=== PATIENT | male | born 1965 | race Caucasian/White ===

== ENCOUNTER 2017-11-25 11:32 | Emergency (ER) | payer MEDICAID, SELFPAY ==
[2017-11-25 12:52] VITALS: BP 120/64; PULSE 69; RESP 20; TEMP 36.6; O2SAT 98
--- NOTE | 2017-11-25 13:03 | HMH.EDUTC ---
[facility] [place] Clinical Impression: Fever of unknown origin, Strep throat Disposition: Home, Self-Care Condition on Discharge: Good Instructions: Fever of Unknown Origin, DI for Fever (Symptom) -- Adult Additional Instructions: *change toothbrush and toothpaste 24-48 hours after starting to take antibiotics so you do not reinfect yourself Monitor Temp. Tylenol and/or Ibuprofen as needed. ER if fever is no less than 101 despite alternating Tylenol and Ibuprofen * Encourage fluids, water, Gatorade, powerade, pedialyte if /toddler/or child *Cold fluids, popsicles and ice cream may feel good on his throat *Over the counter Motrin or Tylenol as needed for fever or pain Follow up with family doctor if symptoms persist or worsen Referrals: Hoarcio Castillo MD [Primary Care Provider] - Time of Disposition: 13:23 Medical Decision Making Vital Signs: 11/25/17 12:52 Temperature 98 F Temperature Source Oral Pulse Rate [Right Brachial] 69 Respiratory Rate 20 Blood Pressure [Right Arm] 120/64 Blood Pressure Source [Right Arm] Automatic Cuff 02 Sat by Pulse Oximetry 98 Oxygen Delivery Method Room Air - [place] Inquiry Pt receiving controlled substance: No [place] was queried for this patient: No [facility] [place] - General Chief complaint: Fever Stated complaint: fever Time Seen by Provider: 11/25/17 13:10 Mode of Arrival: Ambulatory Source of Information: Patient Limitations: No Limitations Description of Symptoms (Recalled from Triage Doc. by RN): cough, sore throat, ear pain, chills HEENT Symptoms (Recalled from RN notes): Yes (cough, sore throat, ear pain) Resp Symptoms (Recalled from RN notes): No Skin Symptoms (Recalled from RN notes): No MS Symptoms (Recalled from RN notes): No Functional Status (Recalled from RN notes): na - History of Present Illness Provider Complaint: Patient state that he has not been feeling well for several days that has continued to get worse. State that his throat is sore, ears feel full and having cough state that he thinks he has a fever Onset (ago): day(s) (2-3) Radiation: non-radiation Severity scale (1-10): 4 Consistency: constant Relieving factors: none Exacerbating factors: none Associated symptoms: cough, fever/chills, other (sore throat) - Related Data Allergies Allergy/AdvReac Type Severity Reaction Status Date / Time No Known Allergies Allergy Verified 11/25/17 12:57 - Worker's Comp Is this a Worker's Comp case?: No Is this an [facility] Worker's Comp?: No Is this a [facility] Worker's Comp?: No [facility] History - *Social History Alcohol Intake: never - Psychiatric History Expresses thoughts of harming self/others: None Suicide Plan Description: No Plan ROS Obtained: Yes All systems reviewed & no additional complaints except as noted - Constitutional Reports chills, Reports fever(s) - ENT Reports ear pain, Reports sinus pain, Reports other Comments: sore throat - Respiratory Reports cough - Gastrointestinal Reports nausea Physical Exam - General General appearance: alert, in no apparent distress - Head Head exam: normal inspection - Expanded ENT Exam Throat exam: Present: tonsillar exudate - Chest Chest inspection: Present: normal inspection. Absent: tenderness - Respiratory Respiratory exam: Present: normal lung sounds bilaterally. Absent: wheezes - Cardiovascular Cardiovascular exam: Present: regular rate - Abdominal Exam Abdominal exam: Present: soft, normal bowel sounds. Absent: distention, tenderness, guarding - Neurological Exam Neurological exam: Present: alert, oriented X3 - Psychiatric Psychiatric exam: Present: normal affect, normal mood - Skin Skin exam: Present: warm, dry, intact, normal color
--- NOTE | 2017-11-25 13:09 | ED_ITS ---
[facility] – [place] Clinical Impression: Fever of unknown origin, Strep throat Disposition: Home, Self-Care Condition on Discharge: Good Instructions: Fever of Unknown Origin, DI for Fever (Symptom) -- Adult Additional Instructions: *change toothbrush and toothpaste 24-48 hours after starting to take antibiotics so you do not reinfect yourself Monitor Temp. Tylenol and/or Ibuprofen as needed. ER if fever is no less than 101 despite alternating Tylenol and Ibuprofen * Encourage fluids, water, Gatorade, powerade, pedialyte if /toddler/or child *Cold fluids, popsicles and ice cream may feel good on his throat *Over the counter Motrin or Tylenol as needed for fever or pain Follow up with family doctor if symptoms persist or worsen Referrals: Horacio Castillo MD [Primary Care Provider] - Time of Disposition: 13:23 Medical Decision Making Vital Signs: 11/25/17 12:52 Temperature 98 F Temperature Source Oral Pulse Rate [Right Brachial] 69 Respiratory Rate 20 Blood Pressure [Right Arm] 120/64 Blood Pressure Source [Right Arm] Automatic Cuff 02 Sat by Pulse Oximetry 98 Oxygen Delivery Method Room Air - [place] Inquiry Pt receiving controlled substance: No [place] was queried for this patient: No [facility] [place] HPI - General Chief complaint: Fever Stated complaint: fever Time Seen by Provider: 11/25/17 13:10 Mode of Arrival: Ambulatory Source of Information: Patient Limitations: No Limitations Description of Symptoms (Recalled from Triage Doc. by RN): cough, sore throat, ear pain, chills HEENT Symptoms (Recalled from RN notes): Yes (cough, sore throat, ear pain) Resp Symptoms (Recalled from RN notes): No Skin Symptoms (Recalled from RN notes): No MS Symptoms (Recalled from RN notes): No Functional Status (Recalled from RN notes): na - History of Present Illness Provider Complaint: Patient state that he has not been feeling well for several days that has continued to get worse. State that his throat is sore, ears feel full and having cough state that he thinks he has a fever Onset (ago): day(s) (2-3) Radiation: non-radiation Severity scale (1-10): 4 Consistency: constant Relieving factors: none Exacerbating factors: none Associated symptoms: cough, fever/chills, other (sore throat) - Related Data Allergies Allergy/AdvReac Type Severity Reaction Status Date / Time No Known Allergies Allergy Verified 11/25/17 12:57 - Worker's Comp Is this a Worker's Comp case?: No Is this an [facility] Worker's Comp?: No Is this a [facility] Worker's Comp?: No [facility] History - *Social History Alcohol Intake: never - Psychiatric History Expresses thoughts of harming self/others: None Suicide Plan Description: No Plan ROS Obtained: Yes All systems reviewed & no additional complaints except as noted - Constitutional Reports chills, Reports fever(s) - ENT Reports ear pain, Reports sinus pain, Reports other Comments: sore throat - Respiratory Reports cough - Gastrointestinal Reports nausea Physical Exam - General General appearance: alert, in no apparent distress - Head Head exam: normal inspection - Expanded ENT Exam Throat exam: Present: tonsillar exudate - Chest Chest inspection: Present: normal inspection. Absent: tenderness - Respiratory Respiratory exam: Present: normal lung sounds bilaterally. Abse
[2017-11-25 16:20] LABS: UTC Influenza A Antigen Negative (Negative); UTC Influenza B Antigen Negative (Negative); UTC Strep Screen (Rapid) Positive (Negative)
== END 2017-11-25 13:38 | disposition home or self-care (01) ==
PROVIDERS: Emergency Provider Nurse Practitioner; PCP Internal Medicine Adolescent Medicine
DX: J02.0 Streptococcal pharyngitis (principal)
CPT/HCPCS: 87276; 87430; 96372; 99201; 99281; J0561

== ENCOUNTER 2017-12-30 07:05 | Day surgery (SDC) | payer MEDICAID, SELFPAY ==
[2017-12-30] VITALS (8 sets, daily range): BP systolic 95–113; BP diastolic 52–70; PULSE 58–67; RESP 16–20; TEMP 37; O2SAT 92–96; BMI 38.0
--- NOTE | 2017-12-30 07:54 | HMH.SCOPE ---
- Procedure: Date: 12/30/17 Procedure Performed:: Esophagogastroduodenoscopy with biopsies Indications:: Patient is a 52-year-old white male referred for upper endoscopy. Had performed colonoscopy for screening on him 6 months ago and recommended a 5 year follow-up. Patient has had several upper endoscopies in the past by gastroenterology. He has had some findings of nonerosive gastritis. Patient describes symptoms consistent with heartburn. He has symptoms of dyspepsia. He states his symptoms are worse with spicy type foods. He is on 20 mg pantoprazole. Performing Provider:: Rc Patton MD Referring Provider:: Horacio Castillo MD Sedation:: Versed 4 mg, fentanyl 100 mcg Procedure:: Consent was obtained and patient was taken to same-day surgery endoscopy procedure room. Adequate intravenous sedation was achieved with titration of Versed and fentanyl. Olympus endoscope was inserted via the oropharynx and advanced to the esophagus. Esophagus appeared normal. Stomach was cannulated and insufflated. Retroflexion revealed no evidence of any appreciable hiatal hernia. There were a couple of erosions in the antrum versus very small early superficial ulcerations. Gastric antral mucosal biopsies obtained for CLOtest for H. pylori. Gastric antral biopsy was obtained of 1 of the erosions. Pylorus was traversed. There was mild erythema of the duodenum but relatively unremarkable. Biopsies were obtained within the duodenum. Endoscope was withdrawn and a couple biopsies were obtained at the gastroesophageal junction. Stomach was desufflated and the endoscope was withdrawn. Findings:: Evidence of some erosive gastritis in the antrum Recommendations:: Patient may require higher dose proton pump inhibitor. Treat H. pylori if positive. If his symptoms remain refractory may initiate gallbladder workup. Complications:: None Estimated blood obtained (mL): 2
== END 2017-12-30 08:30 | disposition home or self-care (01) ==
LOC: OUTP 07:06
PROVIDERS: PCP Internal Medicine Adolescent Medicine; Visit Provider Surgery
PROC: 0DJ08ZZ Inspection of Upper Intestinal Tract, Via Natural or Artificial Opening Endoscopic (ICD-10-PCS; CPT 43235; principal; 2017-12-30 07:30)
DX: K29.70 Gastritis, unspecified, without bleeding (principal); R10.13 Epigastric pain
CPT/HCPCS: 43239; 87339; 99152

== ENCOUNTER → 2018-01-20 09:27 | Outpatient (CLI) | payer MEDICAID, SELFPAY ==
--- NOTE | 2018-01-20 09:34 | XR_ITS ---
XR ankle LT min 3V HISTORY: Anterior ankle pain ITS.REASON: PAIN ANTERIOR ROSARIO, R/O ROSARIO SPLINTS ORDERING PHYSICIAN: Sheryl Garcia DPM PATIENT AGE: 52 years COMPARISON: 06/10/2017 FINDINGS: Prior ORIF of the distal tibia and distal fibula with a bone plate at the distal tibia and a longitudinal screw through the distal fibula. Hypertrophic changes are present at the tip of the medial malleolus. No acute fracture or dislocation is evident with no significant change. There is some mild cortical thickening of the distal tibia. This however is similar when compared to the previous exam and could be related to old trauma. There is faint calcification in the soft tissues of the anterior distal leg probably related to phleboliths. A metallic rounded foreign body is noted over the medial calf posteriorly consistent with a BB. There is a small calcaneal spur and there are mild osteoarthritic changes of the ankle joints presumed post traumatic. IMPRESSION: 1. Prior ORIF distal tib-fib as described above 2. Small metallic foreign body of the posterior calf medially consistent with a BB. 3. No acute finding
== END ==
PROVIDERS: PCP Internal Medicine Adolescent Medicine; Visit Provider Podiatrist
DX: M25.572 Pain in left ankle and joints of left foot (principal); S86.892A Other injury of other muscle(s) and tendon(s) at lower leg level, left leg, initial encounter
CPT/HCPCS: 73610

== ENCOUNTER 2018-01-28 12:09 | Emergency (ER) | payer MEDICAID, SELFPAY ==
[2018-01-28 12:27] VITALS: BP 108/73; PULSE 69; RESP 20; TEMP 36.8; O2SAT 94; BMI 39.3
--- NOTE | 2018-01-28 12:58 | HMH.EDUTC ---
[facility] [place]errals: Horacio Castillo MD [Primary Care Provider] - Medical Decision Making Vital Signs: 01/28/18 12:27 Temperature 98.2 F Temperature Source Temporal Artery Scan Pulse Rate [Right Brachial] 69 Respiratory Rate 20 Blood Pressure [Right Arm] 108/73 Blood Pressure Mean [Right Arm] 84 Blood Pressure Source [Right Arm] Automatic Cuff Blood Pressure Position [Right Arm] Sitting 02 Sat by Pulse Oximetry 94 L Oxygen Delivery Method Room Air [facility] [place] - General Stated complaint: back pain, unknown origin Time Seen by Provider: 01/28/18 12:58 Mode of Arrival: Family Vehicle Source of Information: Patient Limitations: No Limitations Description of Symptoms (Recalled from Triage Doc. by RN): c/o left lower back pain x 1 week HEENT Symptoms (Recalled from RN notes): No Resp Symptoms (Recalled from RN notes): No Skin Symptoms (Recalled from RN notes): No MS Symptoms (Recalled from RN notes): Yes (low back pain) Functional Status (Recalled from RN notes): n/a - Related Data Home Medications Medication Instructions Recorded Confirmed aspirin 81 mg tablet,delayed 81 mg PO QDAY 12/22/17 01/28/18 release carvedilol 12.5 mg tablet 12.5 mg PO BID 12/22/17 01/28/18 pantoprazole 20 mg tablet,delayed 20 mg PO QDAY 12/22/17 01/28/18 release ramipril 1.25 mg capsule 1.25 mg PO QDAY 12/22/17 01/28/18 Atorvastatin Calcium [Atorvastatin 40 mg PO DAILY 01/28/18 01/28/18 40mg Tab] Tamsulosin HCl [Flomax 0.4mg 0.4 mg PO DAILY 01/28/18 01/28/18 capsule] Allergies Allergy/AdvReac Type Severity Reaction Status Date / Time No Known Allergies Allergy Verified 01/16/18 10:27 - Worker's Comp Is this a Worker's Comp case?: No [facility] History Medical History: Reports:: Coronary Artery Disease, Hypertension Denies:: Diabetes Mellitus Type 1, Diabetes Mellitus Type 2, Internal Pacemaker, Lung Disease, Seizures Laterality Cases: Left: Other Other Surgeries: Yes: Colonoscopy, EGD, Other (ankle). No: Pacemaker Amputation: No - Social History Smoking Status: Current every day smoker Tobacco Type: cigarettes Alcohol Intake: never Alcohol Intake Frequency:: other Substance Use Type: denies use - Psychiatric History Expresses thoughts of harming self/others: None Suicide Plan Description: No Plan Family Hx:: Hypertension, Coronary Artery Disease
--- NOTE | 2018-01-28 13:01 | ED_ITS ---
[facility] – [place] Disposition Referrals: Horacio Castillo MD [Primary Care Provider] - Medical Decision Making Vital Signs: 01/28/18 12:27 Temperature 98.2 F Temperature Source Temporal Artery Scan Pulse Rate [Right Brachial] 69 Respiratory Rate 20 Blood Pressure [Right Arm] 108/73 Blood Pressure Mean [Right Arm] 84 Blood Pressure Source [Right Arm] Automatic Cuff Blood Pressure Position [Right Arm] Sitting 02 Sat by Pulse Oximetry 94 L Oxygen Delivery Method Room Air [facility] [place] HPI - General Stated complaint: back pain, unknown origin Time Seen by Provider: 01/28/18 12:58 Mode of Arrival: Family Vehicle Source of Information: Patient Limitations: No Limitations Description of Symptoms (Recalled from Triage Doc. by RN): c/o left lower back pain x 1 week HEENT Symptoms (Recalled from RN notes): No Resp Symptoms (Recalled from RN notes): No Skin Symptoms (Recalled from RN notes): No MS Symptoms (Recalled from RN notes): Yes (low back pain) Functional Status (Recalled from RN notes): n/a - Related Data Home Medications Medication Instructions Recorded Confirmed aspirin 81 mg tablet,delayed 81 mg PO QDAY 12/22/17 01/28/18 release carvedilol 12.5 mg tablet 12.5 mg PO BID 12/22/17 01/28/18 pantoprazole 20 mg tablet,delayed 20 mg PO QDAY 12/22/17 01/28/18 release ramipril 1.25 mg capsule 1.25 mg PO QDAY 12/22/17 01/28/18 Atorvastatin Calcium [Atorvastatin 40 mg PO DAILY 01/28/18 01/28/18 40mg Tab] Tamsulosin HCl [Flomax 0.4mg 0.4 mg PO DAILY 01/28/18 01/28/18 capsule] Allergies Allergy/AdvReac Type Severity Reaction Status Date / Time No Known Allergies Allergy Verified 01/16/18 10:27 - Worker's Comp Is this a Worker's Comp case?: No [facility] History Medical History: Reports:: Coronary Artery Disease, Hypertension Denies:: Diabetes Mellitus Type 1, Diabetes Mellitus Type 2, Internal Pacemaker, Lung Disease, Seizures Laterality Cases: Left: Other Other Surgeries: Yes: Colonoscopy, EGD, Other (ankle). No: Pacemaker Amputation: No - Social History Smoking Status: Current every day smoker Tobacco Type: cigarettes Alcohol Intake: never Alcohol Intake Frequency:: other Substance Use Type: denies use - Psychiatric History Expresses thoughts of harming self/others: None Suicide Plan Description: No Plan Family Hx:: Hypertension, Coronary Artery Disease
--- NOTE | 2018-01-28 13:17 | PC.NURSE ---
Spoke to both patient and . HPI: Low back pain x weeks. 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 No known injury. Gradually worsening over last 2-3 days. Advil had been helping. Could barely move this morning . a calf and had to pull it last night. Wonders if that aggravated pain. Denies pain radiating into extremities, no N/T, no incontinence, Just pain . The worse laying still. Discussed possible differentials with pt and likelihood of low back strain. Also discussed [facility] guidelines that say over 50 with back pain should be seen in ER. Pt's doesn't want to accept the risk associated w/ being seen in [facility] and request to transfer to ER to be sure it is nothing else . Aware ER MD might examine pt and also feel back strain related and do no further evaluation but is comfortable with this and still rather have ER evaluation. Pt just wants whatever is fastest because he has more calves to try and because there is no one else . Report called to Rufina in ER. Bed 9 available. Pt assisted over by Corry [facility] tech, and his .
[2018-01-28 13:21] VITALS: BP 116/73; PULSE 68; RESP 20; TEMP 36.8; O2SAT 94; BMI 39.3
--- NOTE | 2018-01-28 13:37 | XR_ITS ---
EXAM: XR lumbar spine 2-3V HISTORY: ITS.REASON: low back pain ORDERING PHYSICIAN: Rey Powers MD PATIENT AGE: 52 years COMPARISON: None FINDINGS: Normal alignment. No fracture or dislocation. No lytic or blastic change. Anterior osteophytes are present from L3 to S1. Mild facet hypertrophic changes are present at L5-S1. There is mild sclerosis of the left SI joint. Right SI joint has an unremarkable appearance. IMPRESSION: Mild lumbar spondylosis with osteophytosis and facet arthritic change. Mild sclerosis of left SI joint
--- NOTE | 2018-01-28 13:46 | HMH.EDGENADL ---
ED Disposition Clinical Impression: Low back pain Qualifiers: Chronicity: acute Back pain laterality: left Sciatica presence: without sciatica Qualified Code(s): M54.5 - Low back pain Disposition: Home, Self-Care Condition on Discharge: Good Instructions: DI for Low Back Pain Additional Instructions: Additional instructions for BACK PAIN: See your physician as soon as possible for further evaluation. Return immediately if back pain becomes intolerable, or if fever, numbness or weakness of your legs, loss of control of your bowels or bladder. Additional instructions for CONTROLLED SUBSTANCES: You have been prescribed a medication that is a controlled substance. Controlled substances include pain medications known as opiates and sedative nerve medications known as benzodiazepines. Some common opiates include: Codeine (such as Tylenol #3) Hydrocodone (Vicodin, Lortab, Lorcet, [place]) Oxycodone (Percocet, Percodan, Oxycodone, Oxy IR) Some common benzodiazepines include: Diazepam (Valium) Lorazepam (Ativan) Alprazolam (Xanax) Clonazepam (Klonopin) Oxazepam (Serax) All of these controlled substances are highly addictive and frequently abused. Misuse can and frequently does lead to addiction as well as overdose and . Medication should be stored in a locked cabinet or other secure storage unit. Do not store the medication in a motor vehicle. Short term supplies, 3 days or less, are prescribed because of the highly addictive nature of the medication. Any of the controlled substance medication NOT taken should be disposed of properly and NOT SAVED. The recommended method of disposing of unused medications is: Place the medicines in a sealable plastic bag. If the medicine is a solid, crush it or add water to dissolve it. Add something undesirable (cat litter, coffee grounds, etc.) Dispose of sealed bag in household trash Do not flush or pour unused medicines down a sink or drain. Controlled substances should not be shared, given away or sold. Because of the addictive nature and frequent abuse, these medications are sometimes stolen. These medications should be kept in a safe place where they cannot be stolen. Do not keep them in your car or purse. Lost or stolen prescriptions for controlled substances WILL NOT BE REFILLED in this emergency department, regardless of whether a police report was filed. Prescriptions: Acetaminophen with Codeine [Tylenol with Codeine #3 tablet] 1 - 2 tab PO Q6HP PRN #12 tab PRN Reason: Moderate Pain Acetaminophen with Codeine [Tylenol with Codeine #3 tablet] 1 - 2 tab PO Q6HP PRN #12 tab PRN Reason: Moderate Pain predniSONE [Prednisone 20mg Tab] 20 mg PO BID #10 tab Referrals: Horacio Castillo MD [Primary Care Provider] - 3 days - Critical Care Critical Care Time: No Attestation: On 01/28/18, the high probability of a clinically significant, sudden or life threatening deterioration of the following system(s) required my full and direct attention, intervention and personal management. The time I documented below is in addition to time spent performing reported procedures but includes the following listed in this critical care notation. Medical Decision Making Vital Signs: 01/28/18 12:27 01/28/18 13:21 Temperature 98.2 F 98.2 F Temperature Source Temporal Artery Scan Oral Pulse Rate [Right Brachial] 69 68 Respiratory Rate 20 20 Blood Pressure [Right Arm] 108/73 116/73 Blood Pressure Mean [Right Arm] 84 87 Blood Pressure Source [Right Arm] Automatic Cuff Automatic Cuff Blood Pressure Position [Right Arm] Sitting Sitting 02 Sat by Pulse Oximetry 94 L 94 L Oxygen Delivery Method Room Air Room Air - Lab Data Lab Results 01/28/18 13:30: Urine Color Yellow, Urine Appearance Clear, Urine pH 6.0, Ur Specific [place] 1.025, Urine Protein Negative, Urine Glucose (UA) Negative, Urine Ketones Negative, Urine Blood Negative, Urine Nitrate Negative, Urine Bilir
[2018-01-28 13:47] LABS: Microscopic, Urine URINE MICROSCOPIC (MICROSCOPIC)
[2018-01-28 13:55] LABS: Appearance,Urine CLEAR (Clear); Bilirubin,Urine Negative (Negative); Blood, Urine Negative (Negative); Color,Urine YELLOW (Yellow); Glucose,Urine (UA) Negative (Negative); Ketones,Urine Negative (Negative); Leukocyte Esterase,Urine Negative (Negative); Nitrate,Urine Negative (Negative); Protein,Urine Negative (Negative); Specific Gravity, Urine 1.025 (1.005-1.030); Urobilinogen,Urine 0.2 EU/dl (0.2)
[2018-01-28 14:08] LABS: Bacteria,Urine Trace /lpf; Squamous Epithelial Cell,Urine Occasional #/hpf (0-5); WBC,Urine Occasional #/hpf (0-3)
[2018-01-28 15:20] VITALS: BP 119/80; PULSE 69; RESP 20; TEMP 36.7; O2SAT 95
== END 2018-01-28 15:20 | disposition home or self-care (01) ==
LOC: UTC 12:12 → ER 13:17
PROVIDERS: Emergency Provider Emergency Medicine; PCP Internal Medicine Adolescent Medicine
DX: M54.5 Low back pain (principal); I10 Essential (primary) hypertension; I25.10 Atherosclerotic heart disease of native coronary artery without angina pectoris; F17.210 Nicotine dependence, cigarettes, uncomplicated; Z79.82 Long term (current) use of aspirin
CPT/HCPCS: 72100; 81001; 99283

== ENCOUNTER → 2018-05-13 06:55 | Outpatient (CLI) | payer MEDICAID, SELFPAY ==
--- NOTE | 2018-05-13 06:56 | CA_ITS ---
PROCEDURE: 2-D M-mode and color Doppler study INDICATIONS FOR THE TEST: Chest pain X COPD Heart Murmur Tobacco Smoking Palpitations Fatigue Syncope Edema HypertensionXDiabetes Mellitus Rheumatic Fever SOB DOEXObesity Hyperlipidemia Family History HD Additional History ASHWIN,BRADYCARDIA TDS OBESITY PATIENT INFORMATION HEIGHT: 72 WEIGHT:291 GENDER: Male B/P:120/68 2-D/M-MODE INTERPRETATION: 2-D MEASUREMENTS OBSERVED VALUES IN CMS Right Ventricular Dimension (RVDd) 3.1 Interventricular Septum (Thickness)(IVsd) 1.0 Left Ventricular Internal Dimensions(LVIDd) 5.2 Left Ventricular Posterior Wall (Thickness)(LVPWd) 1.2 Aortic Root 3.3 Aortic Cusp Separation 1.6 Left Atrial Dimensions (LAD) 3.6 2D 1. Left atrium is normal size, left ventricle is normal size, there is no concentric left ventricular hypertrophy, visually estimated ejection fraction 55% with no obvious regional wall motion abnormality. 2. The right atrium is normal size, right ventricle is mildly enlarged with normal contractility. 3. The aortic, mitral and tricuspid valvular grossly normal. 4. The pulmonic valve is poorly visualized. 5. No significant pericardial effusion noted. DOPPLER INTERROGATION: Doppler interrogation of the aortic, mitral and tricuspid valvular presence of mild mitral and tricuspid regurgitation, tricuspid and jet velocity is insufficient for calculation of the right ventricular systolic pressure, diastolic parameters are inconclusive. CONCLUSION: 1. Normal left ventricular size, preserved left ventricular systolic function, visually estimated ejection fraction 55% with no obvious regional wall motion abnormality, diastolic parameters are inconclusive. 2. Mildly enlarged right ventricle with normal contractility. 3. Mild mitral and tricuspid regurgitation 4. No significant pericardial effusion noted.
--- NOTE | 2018-05-13 06:56 | NM_ITS ---
History and Indications: Hypertension, family history, chest pain, shortness of breath and fatigue Procedure: Patient received a 0.4 mg of Lexiscan, resting heart rate was 60 beats per resting blood pressure 140/64, with Lexiscan maximum heart rate achieved was 87 bpm which is less than 85% of the maximum predicted heart rate and a blood pressure was 111/55. With Lexiscan patient under shortness of breath and chest pressure. Electrocardiogram: Resting electrocardiogram showed sinus rhythm, with Lexiscan there is less than 1.[address] segment depression noted from the baseline EKG. The EKG portion of the Lexiscan Myoview is nondiagnostic. Cardiac stress and resting SPECT images: Cardiac stress and rest SPECT images were obtained using technetium 99 Myoview 30.4 mCi at stress gated 10.5 mCi at rest. Gated SPECT further analysis of segmental wall motion and calculation of the ejection fraction also done. Cardiac stress and resting SPECT images show uniform myocardial activity without any segmental perfusion abnormality, computer derived ejection fraction is 55% with no obvious regional wall motion abnormality, right ventricle is normal size and contractility. Conclusion: 1. The EKG portion of the Lexiscan Myoview is nondiagnostic. 2. No obvious scintigraphic evidence of reversible ischemia seen, computer derived ejection fraction is 55% with no obvious regional wall motion abnormality, right ventricle is normal size and contractility. 3. Normal Lexiscan Myoview study.
--- NOTE | 2018-05-13 07:30 | HMH.ITSHM ---
CARVEDILOL COREG TAMSULOSIN RAMIPRIL ASA FISH OIL
--- NOTE | 2018-05-13 09:13 | HMH.ITSHM ---
carvedilol coreg tamsulosin ramipril ASA FISH OIL
== END ==
PROVIDERS: PCP Internal Medicine Adolescent Medicine; Visit Provider Internal Medicine
DX: I11.9 Hypertensive heart disease without heart failure (principal); R07.9 Chest pain, unspecified; K21.9 Gastro-esophageal reflux disease without esophagitis; R06.00 Dyspnea, unspecified; G47.33 Obstructive sleep apnea (adult) (pediatric)
CPT/HCPCS: 78452; 93017; 93306; A9502; J2785

== ENCOUNTER → 2018-06-09 11:06 | Outpatient (CLI) | payer MEDICAID, SELFPAY ==
[2018-06-09 13:06] LABS: Alanine Aminotransferase 39 U/L (12-78); Albumin Level 3.7 gm/dL (3.4-5.0); Alkaline Phosphatase 64 U/L (46-116); Anion Gap 12.5 mEq/L (5-15); Aspartate Amino Transferase 20 U/L (15-37); Bilirubin,Direct 0.1 mg/dL (0.0-0.2); Bilirubin,Indirect 0.4 mg/dL (0.0-0.9); Bilirubin,Total 0.5 mg/dL (0.2-1.0); Blood Urea Nitrogen 17 mg/dL (7-18); Calcium 8.5 mg/dL (8.5-10.1); Carbon Dioxide 28 mmol/L (21.0-32.0); Chloride 106 mmol/L (98-107); Chol/HDL Ratio 3.1 (1-3.5); Cholesterol 83 mg/dL (140-200); Creatinine,Serum 0.78 mg/dL (0.70-1.30); Estimated Glomerular Filt Rate 105 ml/min (>60); GFR (African American) 127 ML/MIN (>60); Glucose 111 mg/dL (74-106); HDL Cholesterol 27 mg/dL (27-67); LDL Cholesterol 38 mg/dL (0-130); Potassium 4.5 mmoL/L (3.5-5.1); Sodium 142 mmol/L (136-145); Total Protein,Serum 6.7 gm/dL (6.4-8.2); Triglycerides 91 mg/dL (30-200); VLDL Cholesterol 18 mg/dL (0-40)
== END ==
PROVIDERS: Visit Provider Internal Medicine
DX: S29.011A Strain of muscle and tendon of front wall of thorax, initial encounter (principal); M54.5 Low back pain; R50.9 Fever, unspecified; J02.0 Streptococcal pharyngitis
CPT/HCPCS: 36415; 80048; 80061; 80076

== ENCOUNTER → 2019-12-28 11:35 | Outpatient (CLI) | payer OTHER, SELFPAY ==
[2019-12-28 13:01] LABS: Hemoglobin A1C 6.2 % (0.0-7.0)
[2019-12-28 13:51] LABS: Alanine Aminotransferase 42 U/L (12-78); Albumin Level 3.8 gm/dL (3.4-5.0); Albumin/Globulin Ratio 1.3 (1.1-1.8); Alkaline Phosphatase 63 U/L (46-116); Anion Gap 14.5 mEq/L (5-15); Aspartate Amino Transferase 21 U/L (15-37); Bilirubin,Total 0.4 mg/dL (0.2-1.0); Blood Urea Nitrogen 16 mg/dL (7-18); Calcium 8.7 mg/dL (8.5-10.1); Carbon Dioxide 27 mmol/L (21.0-32.0); Chloride 103 mmol/L (98-107); Creatinine,Serum 0.79 mg/dL (0.70-1.30); Estimated Glomerular Filt Rate 103 ml/min (>60); GFR (African American) 124 ML/MIN (>60); Globulin 2.9 gm/dl (1.3-3.2); Glucose 132 mg/dL (74-106); Potassium 4.5 mmoL/L (3.5-5.1); Sodium 140 mmol/L (136-145); Total Protein,Serum 6.7 gm/dL (6.4-8.2)
== END ==
PROVIDERS: Visit Provider Internal Medicine Adolescent Medicine
DX: I10 Essential (primary) hypertension (principal)
CPT/HCPCS: 36415; 80053; 83036

== ENCOUNTER → 2020-01-11 11:47 | Outpatient (CLI) | payer OTHER, SELFPAY | PROVIDERS: PCP Internal Medicine Adolescent Medicine; Visit Provider Internal Medicine Adolescent Medicine | DX: G47.33 Obstructive sleep apnea (adult) (pediatric) (principal); I10 Essential (primary) hypertension; R06.83 Snoring; E66.9 Obesity, unspecified | CPT/HCPCS: 95806 ==

== ENCOUNTER 2020-02-21 23:34 | Inpatient (IN) ==
[2020-02-22 00:42] LABS: Basophils % 0.3 % (0.1-2.0); Eosinophils # 0.3 K/mm3 (0.0-0.4); Hematocrit 38.8 % (42.0-52.0); Hemoglobin 13.6 g/dL (14.1-18.0); Lymphocytes # 1.7 K/mm3 (0.7-4.5); Lymphocytes % 15.7 % (10-50); Mean Corpuscular Volume 89.6 fl (80-94); Mean Platelet Volume 8.1 fl (7.4-10.4); Monocytes # 0.7 K/mm3 (0.1-1.0); Monocytes % 6.3 % (1.7-9.3); Neutrophils # 8.3 K/mm3 (1.8-7.8); Neutrophils % 74.7 % (37.0-80.0); Platelet Count 252 K/mm3 (142-424); Red Blood Count 4.33 M/mm3 (4.60-6.20); Red Cell Distribution Width 12.5 % (11.5-17.5); White Blood Count 11.1 K/mm3 (4.8-10.8)
[2020-02-22 00:49] LABS: Alanine Aminotransferase 39 U/L (12-78); Albumin Level 4.4 g/dl (3.5-5.0); Albumin/Globulin Ratio 1.4 (1.1-1.8); Alkaline Phosphatase 66 U/L (38-126); Amylase 53 U/L (30-110); Anion Gap 13.3 mEq/L (5-15); Aspartate Amino Transferase 32 U/L (17-59); Bilirubin,Total 0.6 mg/dl (0.2-1.3); Blood Urea Nitrogen 17 mg/dl (9-20); Calcium 9.4 mg/dl (8.4-10.2); Carbon Dioxide 27 mmol/L (22.0-30.0); Chloride 102 mmol/L (98-107); Globulin 3.2 g/dL (1.3-3.2); Glucose 132 mg/dl (74-100); Sodium 138 mmol/L (136-145); Total Protein,Serum 7.6 g/dl (6.3-8.2)
--- NOTE | 2020-02-22 00:55 | Emergency Department Note ---
ED Disposition Clinical Impression: SBO (small bowel obstruction) Disposition: Admitted As Inpatient Condition on Discharge: Serious Instructions: DI for Acute Abdomen Referrals: Arjun Fontaine MD [Primary Care Provider] - - Critical Care Critical Care Time: No Attestation: On 02/21/20, the high probability of a clinically significant, sudden or life threatening deterioration of the following system(s) required my full and direct attention, intervention and personal management. The time I documented below is in addition to time spent performing reported procedures but includes the following listed in this critical care notation. Medical Decision Making - Medical Records Medical records reviewed: Yes: I reviewed the patient's medical records. - [place] Inquiry Pt receiving controlled substance: No Vital Signs: 02/21/20 23:47 02/22/20 02:06 Temperature 99.1 F Temperature Source Oral Pulse Rate [Right Brachial] 72 71 Respiratory Rate 16 19 Blood Pressure [Right Arm] 134/80 135/79 Blood Pressure Mean [Right Arm] 98 97 Blood Pressure Source [Right Arm] Automatic Cuff Automatic Cuff Blood Pressure Position [Right Arm] Sitting Sitting 02 Sat by Pulse Oximetry 98 98 Oxygen Delivery Method Room Air Room Air - Lab Data Lab results reviewed: Yes: I reviewed the patient's lab results. Lab Results 02/21/20 00:30: WBC 11.1 H, RBC 4.33 L, Hgb 13.6 L, Hct 38.8 L, MCV 89.6, MCH 31.4 H, MCHC 35.0, RDW 12.5, Plt Count 252, MPV 8.1, Neut % (Auto) 74.7, Lymph % (Auto) 15.7, [place] % (Auto) 6.3, Eos % (Auto) 3.0, Baso % (Auto) 0.3, Neut # (Auto) 8.3 H, Lymph # (Auto) 1.7, [place] # (Auto) 0.7, Eos # (Auto) 0.3, Baso # (Auto) 0.0 02/21/20 00:30: Sodium 138, Potassium 4.3, Chloride 102, Carbon Dioxide 27, Anion Gap 13.3, BUN 17, Creatinine 0.70, Estimated Creat Clear 122, Estimated GFR 118, Est GFR ( Amer) 143, Glucose 132 H, Calcium 9.4, Total Bilirubin 0.6, AST 32, ALT 39, Alkaline Phosphatase 66, Troponin I < 0.01, Total Protein 7.6, Albumin 4.4, Globulin 3.2, Albumin/Globulin Ratio 1.4, Amylase 53, Lipase 90 Result diagrams: 02/21/20 00:30 02/21/20 00:30 Orders (Tests/Meds): ED MEDICATIONS Generic Name Dose Route Start Last Admin Trade Name Freq PRN Reason Stop Dose Admin Sodium Chloride 1,000 mls @ 999 mls/hr 02/21/20 23:45 02/22/20 00:32 Sod Chlor 0.9% 1000ml Bag IV 02/22/20 00:45 999 mls/hr .Q1H1M VIOLETTE Administration Sodium Chloride 8 ml 02/21/20 23:56 Sodium Chloride 0.9% 10ml Vial IV 03/22/20 23:55 NEEDED PRN dilute pepcid Discontinued Medications Generic Name Dose Route Start Last Admin Trade Name Freq PRN Reason Stop Dose Admin Famotidine 20 mg 02/21/20 23:56 02/22/20 00:32 Pepcid 20mg/2ml Vial IV 02/21/20 23:57 20 mg ONCE ONE Administration Metoclopramide HCl 10 mg 02/21/20 23:56 02/22/20 00:33 Reglan 10mg/2ml Vial IVP 02/21/20 23:57 10 mg ONCE ONE Administration ORDERS Category Date Time Status CT abdomen pelvis w con Stat Cat Scan 02/22/20 00:00 Ordered XR chest 2V Stat Exams 02/22/20 00:01 Ordered Troponin I Q3H Lab 02/22/20 03:00 Ordered Troponin I Q3H Lab 02/22/20 06:00 Ordered Urinalysis and Microscopic Stat Lab 02/21/20 23:54 Ordered - Radiology Data #1 Image(s): Chest Image Reviewed: Yes I reviewed the patient's radiology image Preliminary Findings: Normal/NAD - CT Data CT Scan: Abdomen, Pelvis Time Received: 02:[address] Reviewed: Yes: I have viewed the radiologist's interpretation Preliminary Findings: Abnormal (sbo) - ECG Data Tracing #1 Normal Sinus Rhythm: Yes Ischemic changes: non-specific ST-T wave changes - Physician Consults Physician Consulted: aravind Reason -: Admission Additional Consult: allran Reason -: Pt condition Nausea/Vomiting/Diarrhea HPI - General Chief complaint: Abdominal Pain Stated complaint: Pain in lower abdomen Time Seen by Provider: 02/22/20 00:54 Mode of Arrival: Family Vehicle Source of Information: Patient, Medical Record Limitations: No Limitations Description of Symptoms (Recalled from ER Triage Doc. by RN): sent to er per dr fontaine for gallbladder evaluation; pt complains of midepigastric pain that began after eating. takes meds usually for gerd, but missed his dose tonight. pt states he finallly vomited after trying multiple times earlier and that his last bm was yesterday and normal despite having a small amount of excrement this morning; denies recent fever, denies recent covid19 exposure/contact - History of Present Illness HPI Narrative: upper abd pain with n/v with no melena - has been progressive today - MD complaint: nausea, vomiting, abdominal pain Onset (ago): day(s) Associated Abdominal Pain: Yes Location of pain: periumbilical, RUQ Severity: moderate Quality: cramping Consistency: colicky Associated symptoms: denies other symptoms - Related Data Home Medications Medication Instructions Recorded Confirmed aspirin 81 mg tablet,delayed 81 mg PO QDAY 12/22/17 12/22/18 release pantoprazole 20 mg tablet,delayed 20 mg PO QDAY 12/22/17 12/22/18 release Tamsulosin HCl [Flomax 0.4mg 0.4 mg PO DAILY 01/28/18 12/22/18 capsule] omega-3 fatty acids 1,000 mg 1,000 mg PO DAILY cap 05/05/18 12/22/18 capsule Previous Rx's Medication Instructions Recorded Ibuprofen [Ibuprofen 800mg Tab] 800 mg PO Q8HP PRN #30 tab 05/04/18 Azithromycin [Z-Ronnie 250mg Tab*] 250 mg PO UD DOSE PK #6 tab 01/28/19 Guaifenesin/Dextromethorphan 10 ml PO Q6HP PRN #240 liquid 01/28/19 [Guaifenesin-Dm Solution] Oseltamivir Phosphate [Tamiflu 75 mg PO BID #10 capsule 01/28/19 75mg Capsule] Promethazine HCl [Phenergan 25mg 25 mg PO Q6HP PRN #20 tablet 01/28/19 tab] atorvastatin 40 mg tablet 40 mg PO DAILY #90 tab 06/07/19 carvedilol 12.5 mg tablet 12.5 mg PO BID #180 tab 06/07/19 ramipril 5 mg capsule 5 mg PO DAILY #90 cap 06/07/19 Allergies Allergy/AdvReac Type Severity Reaction Status Date / Time No Known Allergies Allergy Verified 06/09/18 10:10 [facility] History - Hepatitis A Screen Drug use history?: No High risk sexual behaviors?: No History of sexually transmitted infection?: No Currently employed?: No Childcare worker?: No Do you have indoor plumbing?: Yes Do you have electricity?: Yes Attestation statement:: This patient has been screened for Hepatitis A risk factors. I have reviewed the patient's past medical history: Yes Medical History: Reports:: Coronary Artery Disease, Hypertension Denies:: Diabetes Mellitus Type 1, Diabetes Mellitus Type 2, Internal Pacemaker, Lung Disease, Seizures Laterality Cases: Left: Other Other Surgeries: Yes: Colonoscopy, EGD, Other (ankle). No: Pacemaker Amputation: No - Social History Smoking Status: Current every day smoker Tobacco Type: smokeless tobacco # Packs/Day (cigarettes): 0 Alcohol Intake: never Alcohol Intake Frequency:: other Substance Use Type: denies use Occupational Status: employed Housing: house Household Members: spouse Family Hx:: Hypertension, Coronary Artery Disease ROS Obtained: Yes All systems reviewed & no additional complaints - Constitutional Constitutional: Denies fever(s) - Eyes Eyes: Denies change in vision - ENT Ears, Nose, Mouth, and Throat: Denies sore throat - Cardiovascular Cardiovascular: Denies chest pain - Respiratory Respiratory: No cough - Gastrointestinal Gastrointestingal: Reports: as per HPI, abdominal pain, nausea, vomiting. Denies: diarrhea, black, tarry stools - Genitourinary Male Genitourinary: Denies hematuria - Musculoskeletal Musculoskeletal: Denies joint pain, Denies joint swelling - Integumentary/Breasts Skin/Breast: Denies rash - Neurologic Neurologic: Denies seizure-like activity Physical Exam - General General appearance: alert, obese - Head Head exam: normocephalic - Eye Eye exam: Present: PERRL, EOMI. Absent: scleral icterus - ENT ENT exam: Present: mucous membranes dry - Neck Neck exam: Present: trachea midline - Respiratory Respiratory exam: Absent: respiratory distress - Cardiovascular Cardiovascular exam: Present: regular rate - Abdominal Exam Abdominal exam: Present: soft, tenderness, Cosme's sign. Absent: guarding, rebound, rigidity Abdominal tenderness: Present: RUQ, epigastrium - Extremities Exam Extremities exam: Present: full ROM - Neurological Exam Neurological exam: Present: alert, oriented X3, CN II-XII intact - Psychiatric Psychiatric exam: Present: normal affect - Skin Skin exam: Absent: rash
[2020-02-22 06:58] LABS: Basophils % 0.3 % (0.1-2.0); Eosinophils # 0.1 K/mm3 (0.0-0.4); Eosinophils % 0.8 % (0.1-12.0); Hematocrit 46.1 % (42.0-52.0); Hemoglobin 15.7 g/dL (14.1-18.0); Lymphocytes # 1.3 K/mm3 (0.7-4.5); Lymphocytes % 10.5 % (10-50); Mean Corpuscular HGB Conc 34.1 g/dL (31.8-35.4); Mean Corpuscular Volume 91.2 fl (80-94); Mean Platelet Volume 7.7 fl (7.4-10.4); Monocytes # 0.7 K/mm3 (0.1-1.0); Monocytes % 5.7 % (1.7-9.3); Neutrophils # 9.8 K/mm3 (1.8-7.8); Neutrophils % 82.7 % (37.0-80.0); Platelet Count 289 K/mm3 (142-424); Red Blood Count 5.05 M/mm3 (4.60-6.20); Red Cell Distribution Width 12.5 % (11.5-17.5); White Blood Count 11.9 K/mm3 (4.8-10.8)
[2020-02-22 07:00] LABS: Anion Gap 12.6 mEq/L (5-15)
--- NOTE | 2020-02-22 07:21 | Consult Report ---
*Admission Date: 02/22/20 *Reason for consult:: BOWEL OBSTRUCTION *History of present illness: Patient is a 54-year-old male from [facility]. I had seen him previously in 2017 for screening colonoscopy which was unremarkable. I saw him in 2018 for upper endoscopy for postprandial abdominal pain. He did have some antral erosion and minimal ulceration and this was treated medically. Patient states that he was in his usual state of health until yesterday at which time he developed high epigastric/lower substernal pain. There were no preceding symptoms. He presented to [facility] emergency department. He did develop some vomiting during transportation to the emergency room. He underwent evaluation in the emergency room including CT scan which revealed findings of dilated small bowel possibly consistent with bowel obstruction. Patient denies any prior history. He has never had any prior surgeries. He does feel better this morning after nasogastric tube placement. He has passed some flatus. Review of Systems - Review of Systems Review of systems:: pertinent systems reviewed and negative unless documented below - *Neurologic Denies seizure-like activity [facility] History I have reviewed the patient's past medical history: Yes Medical History: Reports:: Coronary Artery Disease, Hyperlipidemia, Hypertension Denies:: Cancer, Diabetes Mellitus Type 1, Diabetes Mellitus Type 2, Internal Pacemaker, Lung Disease, MRSA, Seizures *Have you ever received a pneumonia vaccine?: No *Have you received a flu vaccine this season?: No Laterality Cases: Left: Other Other Surgeries: Yes: Cardiac Catheterization, Colonoscopy, EGD, Other (ankle). No: Pacemaker Amputation: No - *Social History Educational Level: Completed High School Smoking Status: Current every day smoker Tobacco Type: smokeless tobacco # Packs/Day (cigarettes): 0 Alcohol Intake: never Alcohol Intake Frequency:: other Substance Use Type: denies use *Occupational Status:: employed Housing: house Household Members: spouse *Travel in the last 8 weeks: None Family Hx:: Coronary Artery Disease, Heart Attack, Hyperlipidemia, Hypertension, Stroke Meds Home Medications Medication Instructions Recorded Confirmed Type aspirin 81 mg tablet,delayed 81 mg PO QDAY 12/22/17 02/22/20 History release pantoprazole 20 mg tablet,delayed 20 mg PO QDAY 12/22/17 02/22/20 History release Tamsulosin HCl [Flomax 0.4mg 0.4 mg PO DAILY 01/28/18 02/22/20 History capsule] Guaifenesin/Dextromethorphan 10 ml PO Q6HP PRN #240 liquid 01/28/19 02/22/20 Rx [Guaifenesin-Dm Solution] atorvastatin 40 mg tablet 40 mg PO DAILY #90 tab 06/07/19 02/22/20 Rx carvedilol 12.5 mg tablet 12.5 mg PO BID #180 tab 06/07/19 02/22/20 Rx ramipril 5 mg capsule 5 mg PO DAILY #90 cap 06/07/19 02/22/20 Rx Allergies Allergy/AdvReac Type Severity Reaction Status Date / Time No Known Allergies Allergy Verified 06/09/18 10:10 Exam Vital signs and Labs for Last 24 Hours: Temp Pulse Resp BP Pulse Ox 97.8 F 61 16 136/80 93 L 02/22/20 03:45 02/22/20 03:45 02/22/20 03:45 02/22/20 03:45 02/22/20 03:45 Laboratory Results - last 24 hr 02/21/20 00:30: WBC 11.1 H, RBC 4.33 L, Hgb 13.6 L, Hct 38.8 L, MCV 89.6, MCH 31.4 H, MCHC 35.0, RDW 12.5, Plt Count 252, MPV 8.1, Neut % (Auto) 74.7, Lymph % (Auto) 15.7, [place] % (Auto) 6.3, Eos % (Auto) 3.0, Baso % (Auto) 0.3, Neut # (Auto) 8.3 H, Lymph # (Auto) 1.7, [place] # (Auto) 0.7, Eos # (Auto) 0.3, Baso # (Auto) 0.0 02/21/20 00:30: Sodium 138, Potassium 4.3, Chloride 102, Carbon Dioxide 27, Anion Gap 13.3, BUN 17, Creatinine 0.70, Estimated Creat Clear 122, Estimated GFR 118, Est GFR ( Amer) 143, Glucose 132 H, Calcium 9.4, Total Bilirubin 0.6, AST 32, ALT 39, Alkaline Phosphatase 66, Troponin I < 0.01, Total Protein 7.6, Albumin 4.4, Globulin 3.2, Albumin/Globulin Ratio 1.4, Amylase 53, Lipase 90 02/22/20 04:20: Troponin I < 0.01 02/22/20 06:13: WBC 11.9 H, RBC 5.05, Hgb 15.7, Hct 46.1, MCV 91.2, MCH 31.1, MCHC 34.1, RDW 12.5, Plt Count 289, MPV 7.7, Neut % (Auto) 82.7 H, Lymph % (Auto) 10.5, [place] % (Auto) 5.7, Eos % (Auto) 0.8, Baso % (Auto) 0.3, Neut # (Auto) 9.8 H, Lymph # (Auto) 1.3, [place] # (Auto) 0.7, Eos # (Auto) 0.1, Baso # (Auto) 0.0 02/22/20 06:13: Sodium 139, Potassium 4.6, Chloride 102, Carbon Dioxide 29, Anion Gap 12.6, BUN 17, Creatinine 0.80, Estimated Creat Clear 107, Estimated GFR 101, Est GFR ( Amer) 122, Glucose 123 H, Calcium 9.0 I & O for Last 24 hours: Intake & Output 02/19/20 02/20/20 02/21/20 02/22/20 11:59 11:59 11:59 11:59 Intake Total 1233 / 1233 Output Total 1450 / 1450 Balance -217 / -217 Weight 289 lb 2 oz - *Routine HEENT Exam Head: Present: normocephalic Eye: Present: EOMI, PERRL ENT: Present: mucous membranes moist - *Routine Neck Exam Present: supple. Absent: lymphadenopathy - *Routine Respiratory Exam Present: CTA bilaterally - *Routine Cardiovascular Exam Present: RRR - *Routine Abdominal Exam Present: soft. Absent: tenderness Comments: His abdomen is soft with no appreciable tenderness. Hypoactive bowel sounds. - *Routine Extremities Exam Absent: cyanosis, clubbing, edema - *Routine Skin Exam Present: warm. Absent: rash - *Routine Neurological Exam Present: alert, oriented X3 Results - Labs 02/22/20 06:13 02/22/20 06:13 Laboratory Results - last 24 hr 02/21/20 00:30: WBC 11.1 H, RBC 4.33 L, Hgb 13.6 L, Hct 38.8 L, MCV 89.6, MCH 31.4 H, MCHC 35.0, RDW 12.5, Plt Count 252, MPV 8.1, Neut % (Auto) 74.7, Lymph % (Auto) 15.7, [place] % (Auto) 6.3, Eos % (Auto) 3.0, Baso % (Auto) 0.3, Neut # (Auto) 8.3 H, Lymph # (Auto) 1.7, [place] # (Auto) 0.7, Eos # (Auto) 0.3, Baso # (Auto) 0.0 02/21/20 00:30: Sodium 138, Potassium 4.3, Chloride 102, Carbon Dioxide 27, Anion Gap 13.3, BUN 17, Creatinine 0.70, Estimated Creat Clear 122, Estimated GFR 118, Est GFR ( Amer) 143, Glucose 132 H, Calcium 9.4, Total Bilirubin 0.6, AST 32, ALT 39, Alkaline Phosphatase 66, Troponin I < 0.01, Total Protein 7.6, Albumin 4.4, Globulin 3.2, Albumin/Globulin Ratio 1.4, Amylase 53, Lipase 90 02/22/20 04:20: Troponin I < 0.01 02/22/20 06:13: WBC 11.9 H, RBC 5.05, Hgb 15.7, Hct 46.1, MCV 91.2, MCH 31.1, MCHC 34.1, RDW 12.5, Plt Count 289, MPV 7.7, Neut % (Auto) 82.7 H, Lymph % (Auto) 10.5, [place] % (Auto) 5.7, Eos % (Auto) 0.8, Baso % (Auto) 0.3, Neut # (Auto) 9.8 H, Lymph # (Auto) 1.3, [place] # (Auto) 0.7, Eos # (Auto) 0.1, Baso # (Auto) 0.0 02/22/20 06:13: Sodium 139, Potassium 4.6, Chloride 102, Carbon Dioxide 29, Anion Gap 12.6, BUN 17, Creatinine 0.80, Estimated Creat Clear 107, Estimated GFR 101, Est GFR ( Amer) 122, Glucose 123 H, Calcium 9.0 Assessment and Plan - Assessment and plan all Dx Assessment and Plan for all problems:: Continue nasogastric tube decompression for now. It is unclear if this is in an appropriate position. I will check a follow-up acute abdominal series this morning. Plan to review CT scan with radiologist.
--- NOTE | 2020-02-22 08:27 | Pharmacy Consult Notes ---
[facility] Pharmacy VTE Monitoring - Patient Demographics Admission date: 02/22/20 Report Date: 02/22/20 Time: 08:27 Allergies/Adverse Reactions: Patient Allergies No Known Allergies Allergy (Verified 06/09/18 10:10) Height: 1.76 m Weight: 131.145 kg Patient Problems: Current Active Problems SBO (small bowel obstruction) (Acute) - VTE Risk Labs: VTE Related Lab Results Hgb 15.7 g/dL (14.1-18.0) 02/22/20 06:13 Hct 46.1 % (42.0-52.0) 02/22/20 06:13 Plt Count 289 K/mm3 (142-424) 02/22/20 06:13 BUN 17 mg/dl (9-20) 02/22/20 06:13 Creatinine 0.80 mg/dl (0.66-1.25) 02/22/20 06:13 Estimated Creat Clear 107 mL/min (50-200) 02/22/20 06:13 Was VTE Risk Assessment Performed: Yes VTE Risk Level: Low Risk Clinical Trial Participant: No - Prophylaxis VTE Prophylaxis Ordered?: Yes Types of VTE Prophylaxis: TEDS Knee High
--- NOTE | 2020-02-22 08:47 | History & Physical Report ---
*Admission Date: 02/22/20 *Chief complaint: nausea, abdominal pain and distension *History of present illness: 54-year-old gentleman well-known to our office who presented to the ER last night due to abdominal distention and pain. Patient states he developed abdominal discomfort, bloating, pain yesterday morning after waking. Had a small bowel movement that was nonbloody and harder than usual. Passed gas yesterday morning. Over the course of the day his symptoms became worse with his belly. Every time he would lay down he had shortness of breath and had to sit back up due to discomfort. Had exceptional amount of belching throughout the course of the day. No vomiting until driving to the ER and reports the bumpy ride caused him to be nauseous and throw up. His called me applications sales representative last night out of concern with his belly pain and discomfort. Stated she was worried about his gallbladder or something else. Encouraged him to come to the ER. Upon arrival he was found to have small bowel obstruction on abdominal CT. Admitted for medical management and surgery consulted for further assistance. NG placed last night for decompression, patient having improvement this morning though still uncomfortable. NG draining bilious fluid. Patient hemodynamically stable and afebrile. [facility] History I have reviewed the patient's past medical history: Yes Medical History: Reports:: Coronary Artery Disease, Hyperlipidemia, Hypertension Denies:: Cancer, Diabetes Mellitus Type 1, Diabetes Mellitus Type 2, Internal Pacemaker, Lung Disease, MRSA, Seizures *Have you ever received a pneumonia vaccine?: No *Have you received a flu vaccine this season?: No Laterality Cases: Left: Other Other Surgeries: Yes: Cardiac Catheterization, Colonoscopy, EGD, Other (ankle). No: Pacemaker Amputation: No - *Social History Educational Level: Completed High School Smoking Status: Current every day smoker Tobacco Type: smokeless tobacco # Packs/Day (cigarettes): 0 Alcohol Intake: never Alcohol Intake Frequency:: other Substance Use Type: denies use *Occupational Status:: employed Housing: house Household Members: spouse *Travel in the last 8 weeks: None Family Hx:: Coronary Artery Disease, Heart Attack, Hyperlipidemia, Hypertension, Stroke Review of Systems - Review of Systems Review of systems:: pertinent systems reviewed and negative unless documented below (14 point review of systems performed, pertinent positives and negatives as per HPI) - *Neurologic Denies seizure-like activity Meds Home Medications Medication Instructions Recorded Confirmed Type aspirin 81 mg tablet,delayed 81 mg PO DAILY 12/22/17 02/22/20 History release pantoprazole 20 mg tablet,delayed 20 mg PO DAILY 12/22/17 02/22/20 History release Tamsulosin HCl [Flomax 0.4mg 0.4 mg PO HS 01/28/18 02/22/20 History capsule] Guaifenesin/Dextromethorphan 10 ml PO Q6HP PRN #240 liquid 01/28/19 02/22/20 Rx [Guaifenesin-Dm Solution] carvedilol 12.5 mg tablet 12.5 mg PO BID #180 tab 06/07/19 02/22/20 Rx Atorvastatin Calcium [Atorvastatin 40 mg PO HS 02/22/20 02/22/20 History 40mg Tab] ramipriL [Ramipril] 5 mg PO HS 02/22/20 02/22/20 History Allergies Allergy/AdvReac Type Severity Reaction Status Date / Time No Known Allergies Allergy Verified 06/09/18 10:10 Exam Vital signs and Labs for Last 24 Hours: Temp Pulse Resp BP Pulse Ox 97.8 F 61 16 136/80 93 L 02/22/20 03:45 02/22/20 03:45 02/22/20 03:45 02/22/20 03:45 02/22/20 03:45 Laboratory Results - last 24 hr 02/21/20 00:30: WBC 11.1 H, RBC 4.33 L, Hgb 13.6 L, Hct 38.8 L, MCV 89.6, MCH 31.4 H, MCHC 35.0, RDW 12.5, Plt Count 252, MPV 8.1, Neut % (Auto) 74.7, Lymph % (Auto) 15.7, [place] % (Auto) 6.3, Eos % (Auto) 3.0, Baso % (Auto) 0.3, Neut # (Auto) 8.3 H, Lymph # (Auto) 1.7, [place] # (Auto) 0.7, Eos # (Auto) 0.3, Baso # (Auto) 0.0 02/21/20 00:30: Sodium 138, Potassium 4.3, Chloride 102, Carbon Dioxide 27, Anion Gap 13.3, BUN 17, Creatinine 0.70, Estimated Creat Clear 122, Estimated GFR 118, Est GFR ( Amer) 143, Glucose 132 H, Calcium 9.4, Total Bilirubin 0.6, AST 32, ALT 39, Alkaline Phosphatase 66, Troponin I < 0.01, Total Protein 7.6, Albumin 4.4, Globulin 3.2, Albumin/Globulin Ratio 1.4, Amylase 53, Lipase 90 02/22/20 04:20: Troponin I < 0.01 02/22/20 06:13: WBC 11.9 H, RBC 5.05, Hgb 15.7, Hct 46.1, MCV 91.2, MCH 31.1, MCHC 34.1, RDW 12.5, Plt Count 289, MPV 7.7, Neut % (Auto) 82.7 H, Lymph % (Auto) 10.5, [place] % (Auto) 5.7, Eos % (Auto) 0.8, Baso % (Auto) 0.3, Neut # (Auto) 9.8 H, Lymph # (Auto) 1.3, [place] # (Auto) 0.7, Eos # (Auto) 0.1, Baso # (Auto) 0.0 02/22/20 06:13: Sodium 139, Potassium 4.6, Chloride 102, Carbon Dioxide 29, Anion Gap 12.6, BUN 17, Creatinine 0.80, Estimated Creat Clear 107, Estimated GFR 101, Est GFR ( Amer) 122, Glucose 123 H, Calcium 9.0 I & O for Last 24 hours: Intake & Output 02/19/20 02/20/20 02/21/20 02/22/20 23:59 23:59 23:59 23:59 Intake Total 1233 / 1233 Output Total 1450 / 1450 Balance -217 / -217 Weight 131.542 kg 131.145 kg - Constitutional mild distress, morbidly obese - *Routine HEENT Exam Head: Present: normocephalic Eye: Present: EOMI, PERRL ENT: Present: mucous membranes moist Comments: NG in right nare - *Routine Neck Exam Present: supple. Absent: lymphadenopathy - *Routine Respiratory Exam Present: CTA bilaterally - *Routine Cardiovascular Exam Present: RRR - *Routine Abdominal Exam Present: tenderness, distended. Absent: rebound Comments: Hypoactive bowel sounds with tinkling bubbles - *Routine Extremities Exam Present: edema (Trace lower extremity). Absent: cyanosis, clubbing Comments: Left ankle with well-healed surgical scar overlying medial malleolus - *Routine Skin Exam Present: warm. Absent: rash - *Routine Neurological Exam Present: alert, oriented X3 Assessment and Plan (1) Class 3 obesity Current visit: Yes Status: Chronic Category: Medical Code(s): E66.9 - Obesity, unspecified (2) SBO (small bowel obstruction) Current visit: Yes Status: Acute Category: Medical Code(s): K56.609 - Unspecified intestinal obstruction, unspecified as to partial versus complete obstruction (3) CAD (coronary artery disease) Current visit: No Status: Chronic Qualifiers: Coronary Disease-Associated Artery/Lesion type: [place] artery [place] vs. transplanted heart: [place] heart Associated angina: without angina Qualified Code(s): I25.10 - Atherosclerotic heart disease of [place] coronary artery without angina pectoris Category: Medical Code(s): I25.10 - Atherosclerotic heart disease of [place] coronary artery without angina pectoris (4) HHD (hypertensive heart disease) Current visit: No Status: Chronic Qualifiers: Heart failure presence: without heart failure Qualified Code(s): I11.9 - Hypertensive heart disease without heart failure Category: Medical Code(s): I11.9 - Hypertensive heart disease without heart failure (5) HLD (hyperlipidemia) Current visit: No Status: Chronic Qualifiers: Hyperlipidemia type: unspecified Qualified Code(s): E78.5 - Hyperlipidemia, unspecified Category: Medical Code(s): E78.5 - Hyperlipidemia, unspecified (6) Essential hypertension Current visit: Yes Status: Chronic Category: Medical Code(s): I10 - Essential (primary) hypertension - Assessment and plan all Dx Assessment and Plan for all problems:: 54-year-old gentleman with small bowel obstruction. Continue decompression with NG. Surgery consulted, appreciate recommendations. Will allow ice chips this morning. Holding medications normally administered orally. VTE prophylaxis with prophylactic Lovenox. N.p.o. for now. Unclear etiology at this time. Continues to require inpatient management. Full code.
--- NOTE | 2020-02-22 09:28 | Electrocardiograph Report ---
APPROVED REPORT Exam: Resting ECG HR:59 bpm ECG Measurements Heart Rate 59 AXES LA 164 P 38 QRSd 100 QRS 23 QT 434 T43 QTc 429 <Conclusion> Sinus bradycardia Otherwise normal ECG Electronically signed by : Benjie Carson, 02/22/2020 09:28:03
[2020-02-22 09:43] LABS: Microscopic, Urine URINE MICROSCOPIC (MICROSCOPIC)
[2020-02-22 09:46] LABS: Appearance,Urine CLEAR (Clear); Bilirubin,Urine Negative (Negative); Blood, Urine Negative (Negative); Color,Urine YELLOW (Yellow); Glucose,Urine (UA) Negative (Negative); Ketones,Urine Negative (Negative); Leukocyte Esterase,Urine Negative (Negative); Protein,Urine Negative (Negative); Specific Gravity, Urine 1.025 (1.005-1.030); Urobilinogen,Urine 0.2 EU/dl (0.2)
[2020-02-22 10:15] LABS: Squamous Epithelial Cell,Urine Occasional #/hpf (0-5)
--- NOTE | 2020-02-22 17:42 | Progress Note ---
Subjective Narrative: Patient states that he does feel better. He does feel somewhat distended. He denies nausea. He has not had a bowel movement. He does state he is passing some flatus. He had repeat acute abdominal series this morning. When nasogastric tube was initially placed he had 800 cc out and has had minuscule output since then. His only complaint is the nasogastric tube and feeling like something is in his throat. Acute abdominal series does reveal some bowel gas consistent with potential bowel obstruction. Exam Vital signs and Labs for Last 24 Hours: Temp Pulse Resp BP Pulse Ox 97.5 F L 65 20 138/78 94 L 02/22/20 16:00 02/22/20 16:00 02/22/20 16:00 02/22/20 16:00 02/22/20 16:00 Laboratory Results - last 24 hr 02/21/20 00:30: WBC 11.1 H, RBC 4.33 L, Hgb 13.6 L, Hct 38.8 L, MCV 89.6, MCH 31.4 H, MCHC 35.0, RDW 12.5, Plt Count 252, MPV 8.1, Neut % (Auto) 74.7, Lymph % (Auto) 15.7, [place] % (Auto) 6.3, Eos % (Auto) 3.0, Baso % (Auto) 0.3, Neut # (Auto) 8.3 H, Lymph # (Auto) 1.7, [place] # (Auto) 0.7, Eos # (Auto) 0.3, Baso # (Auto) 0.0 02/21/20 00:30: Sodium 138, Potassium 4.3, Chloride 102, Carbon Dioxide 27, Anion Gap 13.3, BUN 17, Creatinine 0.70, Estimated Creat Clear 122, Estimated GFR 118, Est GFR ( Amer) 143, Glucose 132 H, Calcium 9.4, Total Bilirubin 0.6, AST 32, ALT 39, Alkaline Phosphatase 66, Troponin I < 0.01, Total Protein 7.6, Albumin 4.4, Globulin 3.2, Albumin/Globulin Ratio 1.4, Amylase 53, Lipase 90 02/22/20 04:20: Troponin I < 0.01 02/22/20 06:13: WBC 11.9 H, RBC 5.05, Hgb 15.7, Hct 46.1, MCV 91.2, MCH 31.1, MCHC 34.1, RDW 12.5, Plt Count 289, MPV 7.7, Neut % (Auto) 82.7 H, Lymph % (Auto) 10.5, [place] % (Auto) 5.7, Eos % (Auto) 0.8, Baso % (Auto) 0.3, Neut # (Auto) 9.8 H, Lymph # (Auto) 1.3, [place] # (Auto) 0.7, Eos # (Auto) 0.1, Baso # (Auto) 0.0 02/22/20 06:13: Sodium 139, Potassium 4.6, Chloride 102, Carbon Dioxide 29, Anion Gap 12.6, BUN 17, Creatinine 0.80, Estimated Creat Clear 107, Estimated GFR 101, Est GFR ( Amer) 122, Glucose 123 H, Calcium 9.0 02/22/20 09:40: Urine Color Yellow, Urine Appearance Clear, Urine pH 6.0, Ur Specific [place] 1.025, Urine Protein Negative, Urine Glucose (UA) Negative, Urine Ketones Negative, Urine Blood Negative, Urine Nitrate Negative, Urine Bilirubin Negative, Urine Urobilinogen 0.2, Ur Leukocyte Esterase Negative, Urine RBC None, Urine WBC None, Ur Squamous Epith Cells Occasional, Urine Bacteria None I & O for Last 24 hours: Intake & Output 02/20/20 02/21/20 02/22/20 02/23/20 11:59 11:59 11:59 11:59 Intake Total 1233 / 1233 0 / 0 Output Total 1450 / 1450 Balance -217 / -217 0 / 0 Weight 289 lb 2 oz - *Routine Abdominal Exam Present: soft Progress Note: A&P (1) Class 3 obesity Status: Chronic Current Visit: Yes (2) SBO (small bowel obstruction) Status: Acute Assessment and plan: He has had minuscule output from the nasogastric tube today however x-rays reveal it to be in a good position. I reviewed the images. It appears as though this is more large bowel gas than small bowel distention. Continue current treatment regimen at this time. Current Visit: Yes (3) CAD (coronary artery disease) Status: Chronic Current Visit: No (4) HHD (hypertensive heart disease) Status: Chronic Current Visit: No (5) HLD (hyperlipidemia) Status: Chronic Current Visit: No (6) Essential hypertension Status: Chronic Current Visit: Yes
--- NOTE | 2020-02-23 07:17 | Progress Note ---
Subjective Patient reports: no new complaints, bowel movement Narrative: He states that his abdominal pain remains "pretty much gone". He did continue to pass flatus throughout much of the day yesterday and states that he had a bowel movement yesterday. Exam Vital signs and Labs for Last 24 Hours: Temp Pulse Resp BP Pulse Ox 98.1 F 63 18 129/80 95 02/23/20 04:29 02/23/20 04:29 02/23/20 04:29 02/23/20 04:29 02/23/20 04:29 Laboratory Results - last 24 hr 02/22/20 09:40: Urine Color Yellow, Urine Appearance Clear, Urine pH 6.0, Ur Specific [place] 1.025, Urine Protein Negative, Urine Glucose (UA) Negative, Urine Ketones Negative, Urine Blood Negative, Urine Nitrate Negative, Urine Bilirubin Negative, Urine Urobilinogen 0.2, Ur Leukocyte Esterase Negative, Urine RBC None, Urine WBC None, Ur Squamous Epith Cells Occasional, Urine Bacteria None I & O for Last 24 hours: Intake & Output 02/20/20 02/21/20 02/22/20 02/23/20 11:59 11:59 11:59 11:59 Intake Total 1233 / 1233 3115 / 3115 Output Total 1450 / 1450 1525 / 1525 Balance -217 / -217 1590 / 1590 Weight 289 lb 2 oz 288 lb 9 oz - Constitutional no acute distress - *Routine Cardiovascular Exam Present: RRR - *Routine Abdominal Exam Present: soft, obese Progress Note: A&P (1) Class 3 obesity Status: Chronic Current Visit: Yes (2) SBO (small bowel obstruction) Status: Acute Assessment and plan: Obstruction versus enteritis with ileus. Seemingly, he continues to improve. He did have a bowel movement last night. His nasogastric output was moderate over the last shift. Flat/upright films ordered NG tube placed to drain bag Hold off on diet for now (pending toleration of NG to drain bag) Still may benefit from small bowel series if he does not continue to improve Current Visit: Yes (3) CAD (coronary artery disease) Status: Chronic Current Visit: No (4) HHD (hypertensive heart disease) Status: Chronic Current Visit: No (5) HLD (hyperlipidemia) Status: Chronic Current Visit: No (6) Essential hypertension Status: Chronic Current Visit: Yes
--- NOTE | 2020-02-23 08:08 | Progress Note ---
Internal Medicine - PN: Subj *Date: 02/23/20 *Time: 08:07 Interval history: Patient is pleasant, alert, oriented x3. No scleral icterus. Oropharynx clear. Breathing easily, heart rate regular. Lungs clear. Abdomen soft, NG tube in right nostril. Neuro exam clear, skin rashes are nonexistent. Exam Vital signs and Labs for Last 24 Hours: Temp Pulse Resp BP Pulse Ox 98.0 F 57 L 16 149/78 H 96 02/23/20 07:45 02/23/20 07:45 02/23/20 07:45 02/23/20 07:45 02/23/20 07:45 Laboratory Results - last 24 hr 02/22/20 09:40: Urine Color Yellow, Urine Appearance Clear, Urine pH 6.0, Ur Specific [place] 1.025, Urine Protein Negative, Urine Glucose (UA) Negative, Urine Ketones Negative, Urine Blood Negative, Urine Nitrate Negative, Urine Bilirubin Negative, Urine Urobilinogen 0.2, Ur Leukocyte Esterase Negative, Urine RBC None, Urine WBC None, Ur Squamous Epith Cells Occasional, Urine Bacteria None I & O for Last 24 hours: Intake & Output 02/20/20 02/21/20 02/22/20 02/23/20 11:59 11:59 11:59 11:59 Intake Total 1233 / 1233 3115 / 3115 Output Total 1450 / 1450 1525 / 1525 Balance -217 / -217 1590 / 1590 Weight 289 lb 2 oz 288 lb 9 oz Assessment and Plan (1) Class 3 obesity Current visit: Yes Status: Chronic Category: Medical Code(s): E66.9 - Obesity, unspecified (2) SBO (small bowel obstruction) Current visit: Yes Status: Acute Category: Medical Code(s): K56.609 - Unspecified intestinal obstruction, unspecified as to partial versus complete obstruction (3) CAD (coronary artery disease) Current visit: No Status: Chronic Qualifiers: Coronary Disease-Associated Artery/Lesion type: [place] artery [place] vs. transplanted heart: [place] heart Associated angina: without angina Qualified Code(s): I25.10 - Atherosclerotic heart disease of [place] coronary artery without angina pectoris Category: Medical Code(s): I25.10 - Atherosclerotic heart disease of [place] coronary artery without angina pectoris (4) HHD (hypertensive heart disease) Current visit: No Status: Chronic Qualifiers: Heart failure presence: without heart failure Qualified Code(s): I11.9 - Hypertensive heart disease without heart failure Category: Medical Code(s): I11.9 - Hypertensive heart disease without heart failure (5) HLD (hyperlipidemia) Current visit: No Status: Chronic Qualifiers: Hyperlipidemia type: unspecified Qualified Code(s): E78.5 - Hyperlipidemia, unspecified Category: Medical Code(s): E78.5 - Hyperlipidemia, unspecified (6) Essential hypertension Current visit: Yes Status: Chronic Category: Medical Code(s): I10 - Essential (primary) hypertension - Assessment and plan all Dx Assessment and Plan for all problems:: Continue current therapy, agree with a drain bag, bowel movements are encouraging.
--- NOTE | 2020-02-24 08:19 | Progress Note ---
Internal Medicine - PN: Subj *Date: 02/24/20 *Time: 08:17 Interval history: Patient feels good, wishes his NG tube out. Reports good bowel movements but does not report a lot of gas. Exam Vital signs and Labs for Last 24 Hours: Temp Pulse Resp BP Pulse Ox 98.2 F 65 16 137/69 93 L 02/24/20 07:48 02/24/20 07:48 02/24/20 07:48 02/24/20 07:48 02/24/20 07:48 I & O for Last 24 hours: Intake & Output 02/21/20 02/22/20 02/23/20 02/24/20 11:59 11:59 11:59 11:59 Intake Total 1233 / 1233 3115 / 3115 2862 / 2862 Output Total 1450 / 1450 1525 / 1525 1845 / 1845 Balance -217 / -217 1590 / 1590 1017 / 1017 Weight 289 lb 2 oz 288 lb 9 oz 291 lb Narrative: Overall patient looks good. No jaundice, no scleral icterus. Lungs clear, heart rate regular. Oropharynx irritated from the NG tube but otherwise clear. NG tube in right nostril. No drainage noted from gravity drain. Abdomen soft, nontender. No edema or clubbing. Assessment and Plan (1) Class 3 obesity Current visit: Yes Status: Chronic Category: Medical Code(s): E66.9 - Obesity, unspecified (2) SBO (small bowel obstruction) Current visit: Yes Status: Acute Category: Medical Code(s): K56.609 - Unspecified intestinal obstruction, unspecified as to partial versus complete obstruction (3) CAD (coronary artery disease) Current visit: No Status: Chronic Qualifiers: Coronary Disease-Associated Artery/Lesion type: [place] artery [place] vs. transplanted heart: [place] heart Associated angina: without angina Qualified Code(s): I25.10 - Atherosclerotic heart disease of [place] coronary artery without angina pectoris Category: Medical Code(s): I25.10 - Atherosclerotic heart disease of [place] coronary artery without angina pectoris (4) HHD (hypertensive heart disease) Current visit: No Status: Chronic Qualifiers: Heart failure presence: without heart failure Qualified Code(s): I11.9 - Hypertensive heart disease without heart failure Category: Medical Code(s): I11.9 - Hypertensive heart disease without heart failure (5) HLD (hyperlipidemia) Current visit: No Status: Chronic Qualifiers: Hyperlipidemia type: unspecified Qualified Code(s): E78.5 - Hyperlipidemia, unspecified Category: Medical Code(s): E78.5 - Hyperlipidemia, unspecified (6) Essential hypertension Current visit: Yes Status: Chronic Category: Medical Code(s): I10 - Essential (primary) hypertension - Assessment and plan all Dx Assessment and Plan for all problems:: Overall patient is doing well. Anticipate NG tube discontinuation today, transition to full liquids assess patient over the next 24 hours
--- NOTE | 2020-02-24 08:31 | Progress Note ---
Subjective Patient reports: feels better, bowel movement Narrative: NG out this AM. Exam Vital signs and Labs for Last 24 Hours: Temp Pulse Resp BP Pulse Ox 98.2 F 65 16 137/69 93 L 02/24/20 07:48 02/24/20 07:48 02/24/20 07:48 02/24/20 07:48 02/24/20 07:48 I & O for Last 24 hours: Intake & Output 02/21/20 02/22/20 02/23/20 02/24/20 11:59 11:59 11:59 11:59 Intake Total 1233 / 1233 3115 / 3115 2862 / 2862 Output Total 1450 / 1450 1525 / 1525 1845 / 1845 Balance -217 / -217 1590 / 1590 1017 / 1017 Weight 289 lb 2 oz 288 lb 9 oz 291 lb - Constitutional no acute distress - *Routine Respiratory Exam Absent: respiratory distress - *Routine Cardiovascular Exam Present: RRR Progress Note: A&P (1) Class 3 obesity Status: Chronic Current Visit: Yes (2) SBO (small bowel obstruction) Status: Resolved Assessment and plan: The patient continues to slowly improve. His symptoms were most likely secondary to enteritis/ileus (as opposed to mechanical obstruction). His nasogastric tube has just been removed and he is tolerating small amounts of clear liquids. Slowly advance diet Current Visit: Yes (3) CAD (coronary artery disease) Status: Chronic Current Visit: No (4) HHD (hypertensive heart disease) Status: Chronic Current Visit: No (5) HLD (hyperlipidemia) Status: Chronic Current Visit: No (6) Essential hypertension Status: Chronic Current Visit: Yes
--- NOTE | 2020-02-25 07:58 | Discharge Summary ---
General - General Admission date:: 02/22/20 Discharge date: 02/25/20 HPI HPI: 54-year-old gentleman well-known to our office who presented to the ER last night due to abdominal distention and pain. Patient states he developed abdominal discomfort, bloating, pain yesterday morning after waking. Had a small bowel movement that was nonbloody and harder than usual. Passed gas yesterday morning. Over the course of the day his symptoms became worse with his belly. Every time he would lay down he had shortness of breath and had to sit back up due to discomfort. Had exceptional amount of belching throughout the course of the day. No vomiting until driving to the ER and reports the bumpy ride caused him to be nauseous and throw up. His called me qualifications examiner last night out of concern with his belly pain and discomfort. Stated she was worried about his gallbladder or something else. Encouraged him to come to the ER. Upon arrival he was found to have small bowel obstruction on abdominal CT. Admitted for medical management and surgery consulted for further assistance. NG placed last night for decompression, patient having improvement this morning though still uncomfortable. NG draining bilious fluid. Patient hemodynamically stable and afebrile. Hospital Course Hospital Course: Patient was placed under NG tube suction, did well, felt immediately better. Began to have some gas, NG tube was changed to drain bag and then removed yesterday morning. He tolerated full liquids and this morning was feeling great. He will be discharged home. He will be advised to do full liquids for 24 hours and then MiraLAX. I will see him in the office in 3 to 4 days. Objective Vital signs: Temp Pulse Resp BP Pulse Ox 98.2 F 54 L 16 126/74 94 L 02/25/20 04:00 02/25/20 04:00 02/25/20 04:00 02/25/20 04:00 02/25/20 04:00 no acute distress - *Routine HEENT Exam Head: Present: normocephalic Eye: Present: EOMI, PERRL ENT: Present: mucous membranes moist - *Routine Neck Exam Present: supple - *Routine Respiratory Exam Present: CTA bilaterally - *Routine Cardiovascular Exam Present: RRR - *Routine Abdominal Exam Present: soft, normoactive bowel sounds. Absent: tenderness - *Routine Extremities Exam Absent: cyanosis, clubbing, edema - *Routine Skin Exam Present: warm. Absent: rash - Detailed Eye Exam Eyelids: Bilateral normal inspection DS: Diagnosis - Discharge Diagnosis (1) Class 3 obesity Status: Chronic (2) SBO (small bowel obstruction) Status: Resolved (3) CAD (coronary artery disease) Status: Chronic (4) HHD (hypertensive heart disease) Status: Chronic (5) HLD (hyperlipidemia) Status: Chronic (6) Essential hypertension Status: Chronic Discharge Plan - Patient Discharge Instructions ACTIVITY: Continue current activity DIET: continue same diet Patient Instructions: Small Bowel Obstruction, DI for Small Bowel Obstruction - Follow up Plan Follow up with: Horacio Castillo MD [Staff Physician] - 02/28/20 Disposition: Home, Self-Jail Medications: Home Medications Medication Instructions Recorded Confirmed Type aspirin 81 mg tablet,delayed 81 mg PO DAILY 12/22/17 02/22/20 History release pantoprazole 20 mg tablet,delayed 20 mg PO DAILY 12/22/17 02/22/20 History release Tamsulosin HCl [Flomax 0.4mg 0.4 mg PO HS 01/28/18 02/22/20 History capsule] Guaifenesin/Dextromethorphan 10 ml PO Q6HP PRN #240 liquid 01/28/19 02/22/20 Rx [Guaifenesin-Dm Solution] carvedilol 12.5 mg tablet 12.5 mg PO BID #180 tab 06/07/19 02/22/20 Rx Atorvastatin Calcium [Atorvastatin 40 mg PO HS 02/22/20 02/22/20 History 40mg Tab] ramipriL [Ramipril] 5 mg PO HS 02/22/20 02/22/20 History polyethylene glycoL 3350 [Miralax 17 gm PO DAILY #30 packet 02/25/20 Rx 17gm Packet] Prescriptions/Medication Reconciliation: New polyethylene glycoL 3350 [Miralax 17gm Packet] 17 gm PO DAILY #30 packet Continued aspirin 81 mg tablet,delayed release 81 mg PO DAILY pantoprazole 20 mg tablet,delayed release 20 mg PO DAILY carvedilol 12.5 mg tablet 12.5 mg PO BID #180 tab ramipriL [Ramipril] 5 mg PO HS Tamsulosin HCl [Flomax 0.4mg capsule] 0.4 mg PO HS Guaifenesin/Dextromethorphan [Guaifenesin-Dm Solution] 10 ml PO Q6HP PRN #240 liquid PRN Reason: Cough Atorvastatin Calcium [Atorvastatin 40mg Tab] 40 mg PO HS - Problem Reconciliation Problems Reviewed?: Yes
== END 2020-02-25 09:14 | disposition home or self-care (01) | DRG 389 ==
LOC: ER 23:34 → 2ND 02-22 03:09
PROVIDERS: ADMIT Internal Medicine Adolescent Medicine; ATTEND Internal Medicine Adolescent Medicine
CPT/HCPCS: Q9967

== ENCOUNTER → 2020-03-08 09:39 | Outpatient (CLI) | payer OTHER, SELFPAY ==
--- NOTE | 2020-03-08 09:39 | FL_ITS ---
PROCEDURE: FL UPPER GI SMALL BOWEL CLINICAL INDICATION: abdominal pain Abdominal pain, history of small-bowel obstruction COMPARISON: CT ABDOMEN PELVIS W CON from 02/22/2020 TECHNIQUE: FLUOROSCOPY TIME : 2 minutes and 16 seconds FINDINGS: Players Assistant exam is unremarkable. Bowel gas pattern is unremarkable. Esophagus stomach and duodenum have an unremarkable appearance. No mass or ulcerative lesion is evident. There was a small amount of GE reflux noted during the exam.There is no evidence of hiatal hernia. No ulcer or mass evident. No mucosal abnormalities apparent. There is normal peristalsis. The small bowel has an unremarkable appearance. No mass or mucosal abnormality. No obstructive lesions. IMPRESSION: Essentially negative upper GI and small-bowel follow-through with exception of a small amount GE reflux Dictated by: Hardy Ayoub MD 03/08/2020 15:45 Electronically signed by Hardy Ayoub MD in [place] 03/08/2020 15:45
== END ==
PROVIDERS: PCP Internal Medicine Adolescent Medicine; Visit Provider Surgery
DX: R10.9 Unspecified abdominal pain (principal); K56.609 Unspecified intestinal obstruction, unspecified as to partial versus complete obstruction
CPT/HCPCS: 74246; 74248

== ENCOUNTER → 2020-06-12 07:01 | Outpatient (CLI) | payer OTHER, SELFPAY ==
--- NOTE | 2020-06-12 | CA_ITS ---
APPROVED REPORT Exam: Pharmacologic Technologist: Jessica Lamas Ht: 6 ft 0 in Wt: 296 lbs BSA: 2.52 m2 HR: 53 bpm BP: 110/64 mmHg Indications: Shortness of Breath Medical History Medications: Pantoprazole,,,,, Atorvastatin,,,,, Carvedilol,,,,, Ramipril,,,,, TAMSULOSIN,,,,, Stress Test Details Test: LEXISCAN HR Resting HR: 56 bpm Max Heart Rate (APMHR): 167 bpm Max HR Achieved: 91 bpm Target HR (85% APMHR): 141 bpm % of APMHR: 54 Recovery HR: 73 bpm BP Resting BP: 110.0/64.0 mmHg Max BP: 116.0/63.0 mmHg Recovery BP: 109.0/64.0 mmHg ECG Clinical Reason for Termination: Completed Protocol Exercise duration: 04:00 min Highest Stage Achieved: Exercise capacity: 1.0 METs Stress ECG Conclusion Resting ECG: Sinus bradycardia Symptoms: No chest pain Arrhythmias/Ectopy: None ST-T Changes: < 1.[address] segment changes. Conclusion: Non-diagnostic lexiscan stress test. Patient received the infusion per protocol without chest pain, ST segment changes or arrhythmias. See the nuclear report for further information. Test Summary REST . . . . . . . Resting REST 12:35 . . 56 . 110/ 64 . . Stage 1 . . . . . . . Myoview Injected Stage 1 01:00 . . 79 . . . . Stage 2 01:00 . . 81 . 116/ 63 . . Stage 3 01:00 . . 78 . 105/ 63 . . Stage 4 01:00 . . 76 . 109/ 65 . Stop exercise at 04:00 RECOVERY 01:00 . . 73 . . . . RECOVERY 02:00 . . 69 . . . . RECOVERY 03:00 . . 71 . 109/ 64 . . RECOVERY 03:16 . . 72 . 109/ 64 . . Electronically signed by : Michael Pederson, 06/12/2020 22:52:07
--- NOTE | 2020-06-12 07:02 | NM_ITS ---
APPROVED REPORT Exam: Nuclear Stress Test Indication: short of breath Patient Location: Outpatient Stress Tech: Jessica Lamas [place] Tech:CESAR Triplett RT(R)(N) Ht: 6 ft 0 in Wt: 296 lbs HR: 53 bpm BP: 110/64 mmHg BSA: 2.52 m2 History: short of breath Procedure: Patient received a 0.4 mg of intravenous Lexiscan, resting heart rate 53 bpm, resting blood pressure 110/64 mmHg, with Lexiscan maximum heart rate achived was 83 bpm which is Less than 85 % of the maximum predicted heart rate and blood pressure was 116/63 mmHg. With Lexiscan, patient denied any complaint of chest pain. Electrocardiogram Resting electrocardiogram showed sinus rhythm, with Lexiscan there is less than 1.[address] segment depression noted from the baseline EKG. The EKG portion of the Lexiscan is nondiagnostic. Cardiac Stress and Resting SPECT Images: Cardiac Stress and Resting SPECT images were obtained using technetium 99m Myoview 31.7 mCi stress and 10.83 mCi at rest. Gated SPECT for analysis of segmental wall motion and calculation of the ejection fraction also done. Cardiac stress and resting SPECT images show uniform myocardial activity without segmental perfusion abnormality, computer derived ejection fraction is over 65% with no regional wall motion abnormality, right ventricle is normal size and contractility. Conclusion: 1. The EKG portion of the Lexiscan Myoview is nondiagnostic. 2. No scintigraphic evidence of reversible ischemia seen, computer derived ejection fraction is over 65% with no regional wall motion abnormality, right ventricle is normal size and contractility. 3. Normal Lexiscan Myoview study. Electronically signed by : Michael Pederson, 06/12/2020 23:03:41
--- NOTE | 2020-06-12 07:02 | CA_ITS ---
APPROVED REPORT EXAM: Comprehensive 2D, Doppler, and color-flow Echocardiogram Reinforcing Steel Placer: Darlyn Espinoza CRT Ht: 5 ft 9 in Wt: 300lbs BSA: 2.45 BP: 130/66 mmHg Indications: HTN, HLD, Obesity, cad, pre-op 2D Dimensions LVOT 2.38 cm (M/F) 1.5-2.5 M-Mode Dimensions RVDd 2.74 cm (0.9-2.6) LVDd 5.22 cm (3.5-5.7) LVDs 3.24 cm (3.5-5.7) IVSd 1.60 cm (0.6-1.1) PWd 0.95 cm (0.6-1.1) EF (Teich) 67.70% FS 37.90% EDV (Teich) 130.70 mL ESV (Teich) 42.20 mL LV Diastology E/A Ratio 1.42 Mitral Valve MV A Velocity 52.00 (40-130 cm/s) Left Ventricle Left atrium is mildly enlarged, left ventricle is normal size, visually estimated ejection fraction 55% with no regional wall motion abnormality, diastolic parameters are inconclusive. Right Ventricle Right atrium and right ventricular are mildly enlarged with normal contractility. Aortic Valve Aortic valve is grossly normal, there is no aortic stenosis or aortic insufficiency. Mitral Valve Mitral valve is grossly normal, there is no mitral stenosis, there is trace mitral regurgitation. Tricuspid Valve Tricuspid valve is grossly normal, there is mild tricuspid regurgitation, tricuspid regurgitation jet velocity is inadequate for calculation of the right ventricular systolic pressure. Pulmonic Valve Pulmonic valve is poorly visualized. Great Vessels Aortic root is normal size. Pericardium No significant pericardial effusion noted. Conclusion 1. Mild biatrial enlargement, normal left ventricular size, visually estimated ejection fraction 55% with no regional wall motion abnormality, diastolic parameters are inconclusive. 2. Mildly enlarged right ventricle with normal contractility. 3. Mild mitral and tricuspid regurgitation. 4. No significant pericardial effusion noted. Electronically signed by : Michael Pederson, 06/12/2020 23:15:25
--- NOTE | 2020-06-12 09:06 | HMH.ITSHM ---
Current Home Medications as stated by this patient Tej Ojeda or corporate representative. [] ramipril carvedilol pantoprazole atorvastin flomax
== END ==
PROVIDERS: PCP Internal Medicine Adolescent Medicine; Visit Provider Urology
DX: I25.10 Atherosclerotic heart disease of native coronary artery without angina pectoris (principal); E78.5 Hyperlipidemia, unspecified; I11.9 Hypertensive heart disease without heart failure; E66.9 Obesity, unspecified
CPT/HCPCS: 78452; 93017; 93306; A9502; J2785

== ENCOUNTER → 2020-06-13 08:40 | Outpatient (CLI) | payer OTHER, SELFPAY ==
[2020-06-13 09:39] LABS: Basophils % 0.4 % (0.1-2.0); Eosinophils # 0.1 K/mm3 (0.0-0.4); Eosinophils % 2.5 % (0.1-12.0); Hematocrit 43.9 % (42.0-52.0); Hemoglobin 15.3 g/dL (14.1-18.0); Lymphocytes % 36.4 % (10-50); Mean Corpuscular HGB Conc 34.8 g/dL (31.8-35.4); Mean Corpuscular Hemoglobin 33.3 pg (27.0-31.2); Mean Corpuscular Volume 95.8 fl (80-94); Mean Platelet Volume 8.1 fl (7.4-10.4); Monocytes # 0.4 K/mm3 (0.1-1.0); Monocytes % 7.7 % (1.7-9.3); Platelet Count 228 K/mm3 (142-424); Red Blood Count 4.58 M/mm3 (4.60-6.20); White Blood Count 5.6 K/mm3 (4.8-10.8)
[2020-06-13 10:24] LABS: Intact Parathyroid Hormone 71.6 pg/mL (7.5-53.5)
[2020-06-13 10:29] LABS: 25-OH Vitamin D, Total 41.1 ng/mL (30-100)
[2020-06-13 10:45] LABS: Chloride 103 mmol/L (98-107)
[2020-06-13 10:46] LABS: Potassium 4.4 mmoL/L (3.5-5.1); Sodium 138 mmol/L (136-145)
[2020-06-13 10:48] LABS: Alanine Aminotransferase 35 U/L (12-78); Albumin Level 3.9 g/dl (3.5-5.0); Albumin/Globulin Ratio 1.4 (1.1-1.8); Alkaline Phosphatase 52 U/L (38-126); Anion Gap 12.4 mEq/L (5-15); Aspartate Amino Transferase 30 U/L (17-59); Bilirubin,Total 0.6 mg/dl (0.2-1.3); Blood Urea Nitrogen 18 mg/dl (9-20); Calcium 8.6 mg/dl (8.4-10.2); Carbon Dioxide 27 mmol/L (22.0-30.0); Cholesterol 91 mg/dl (140-200); Estimated Glomerular Filt Rate 118 ml/min (>60); GFR (African American) 143 ML/MIN (>60); Globulin 2.7 g/dL (1.3-3.2); Glucose 121 mg/dl (74-100); Iron 120 ug/dL (49-181); Phosphorous 3.4 mg/dl (2.5-4.5); Total Protein,Serum 6.6 g/dl (6.3-8.2); Triglycerides 89 mg/dl (30-150); VLDL Cholesterol 18 mg/dL (0-40)
[2020-06-13 10:49] LABS: Chol/HDL Ratio 3.3 (1-3.5); HDL Cholesterol 28 mg/dl (40-60); Magnesium 2.1 mg/dl (1.6-2.3)
[2020-06-13 11:00] LABS: Direct LDL Cholesterol 48.25 mg/dL (100-129)
[2020-06-13 11:21] LABS: Thyroid Stimulating Hormone 2.58 uIU/mL (0.465-4.68)
[2020-06-13 11:24] LABS: Ferritin 199 ng/ml (17.9-464)
[2020-06-13 11:28] LABS: Hemoglobin A1C 6.3 % (4.0-6.0)
[2020-06-15 09:39] LABS: Prealbumin 21 mg/dL (10-36)
[2020-06-16 00:08] LABS: Methylmalonic Acid 160 nmol/L (0-378)
[2020-06-16 16:10] LABS: Vitamin E Alpha Tocopherol 4.7 mg/L (7.0-25.1)
[2020-06-16 18:02] LABS: Vitamin A 38.3 ug/dL (20.1-62.0); Vitamin B1 123.2 nmol/L (66.5-200.0); Vitamin E Gamma Tocopherol 1.1 mg/L (0.5-5.5)
== END ==
PROVIDERS: Visit Provider Physician Assistant
DX: K21.9 Gastro-esophageal reflux disease without esophagitis (principal); E66.01 Morbid (severe) obesity due to excess calories; Z13.21 Encounter for screening for nutritional disorder
CPT/HCPCS: 36415; 80053; 80061; 82131; 82306; 82728; 82746; 83036; 83540; 83735; 83970; 84100; 84134; 84425; 84443; 84446; 84590; 85025

== ENCOUNTER → 2020-07-11 13:51 | Outpatient (CLI) | payer OTHER, SELFPAY | PROVIDERS: Visit Provider Surgery | DX: Z01.818 Encounter for other preprocedural examination (principal); K21.9 Gastro-esophageal reflux disease without esophagitis | CPT/HCPCS: U0003 ==

== ENCOUNTER → 2020-09-07 09:11 | Outpatient (CLI) | payer OTHER, SELFPAY ==
[2020-09-07 09:32] LABS: Basophils % 0.9 % (0.1-2.0); Eosinophils # 0.1 K/mm3 (0.0-0.4); Eosinophils % 3.1 % (0.1-12.0); Hematocrit 47.3 % (42.0-52.0); Hemoglobin 15.8 g/dL (14.1-18.0); Lymphocytes # 1.4 K/mm3 (0.7-4.5); Lymphocytes % 30.2 % (10-50); Mean Corpuscular HGB Conc 33.4 g/dL (31.8-35.4); Mean Corpuscular Hemoglobin 32.2 pg (27.0-31.2); Mean Corpuscular Volume 96.3 fl (80-94); Mean Platelet Volume 8.6 fl (7.4-10.4); Monocytes # 0.4 K/mm3 (0.1-1.0); Monocytes % 7.9 % (1.7-9.3); Neutrophils # 2.7 K/mm3 (1.8-7.8); Neutrophils % 57.9 % (37.0-80.0); Platelet Count 251 K/mm3 (142-424); Red Blood Count 4.91 M/mm3 (4.60-6.20); Red Cell Distribution Width 12.4 % (11.5-17.5); White Blood Count 4.7 K/mm3 (4.8-10.8)
[2020-09-07 11:39] LABS: Alanine Aminotransferase 37 U/L (12-78); Albumin Level 4.6 g/dl (3.5-5.0); Albumin/Globulin Ratio 1.6 (1.1-1.8); Alkaline Phosphatase 69 U/L (38-126); Anion Gap 17.1 mEq/L (5-15); Aspartate Amino Transferase 37 U/L (17-59); Bilirubin,Total 0.7 mg/dl (0.2-1.3); Blood Urea Nitrogen 18 mg/dl (9-20); Calcium 9.5 mg/dl (8.4-10.2); Carbon Dioxide 28 mmol/L (22.0-30.0); Chloride 100 mmol/L (98-107); Estimated Glomerular Filt Rate 88 ml/min (>60); GFR (African American) 107 ML/MIN (>60); Globulin 2.8 g/dL (1.3-3.2); Glucose 91 mg/dl (74-100); Potassium 5.1 mmoL/L (3.5-5.1); Sodium 140 mmol/L (136-145); Total Protein,Serum 7.4 g/dl (6.3-8.2)
== END ==
PROVIDERS: Visit Provider Physician Assistant Medical
DX: I25.118 Atherosclerotic heart disease of native coronary artery with other forms of angina pectoris (principal); I11.9 Hypertensive heart disease without heart failure
CPT/HCPCS: 36415; 80053; 85025

== ENCOUNTER → 2021-02-09 09:48 | Outpatient (CLI) | payer OTHER, SELFPAY ==
[2021-02-09 10:25] LABS: Basophils % 0.5 % (0.1-2.0); Eosinophils # 0.2 K/mm3 (0.0-0.4); Eosinophils % 3.4 % (0.1-12.0); Hematocrit 44.9 % (42.0-52.0); Hemoglobin 14.6 g/dL (14.1-18.0); Lymphocytes # 1.5 K/mm3 (0.7-4.5); Lymphocytes % 24.3 % (10-50); Mean Corpuscular HGB Conc 32.5 g/dL (31.8-35.4); Mean Corpuscular Volume 95.2 fl (80-94); Mean Platelet Volume 8.3 fl (7.4-10.4); Monocytes # 0.3 K/mm3 (0.1-1.0); Monocytes % 5.3 % (1.7-9.3); Neutrophils # 4.1 K/mm3 (1.8-7.8); Neutrophils % 66.5 % (37.0-80.0); Platelet Count 276 K/mm3 (142-424); Red Blood Count 4.72 M/mm3 (4.60-6.20); Red Cell Distribution Width 13.2 % (11.5-17.5); White Blood Count 6.1 K/mm3 (4.8-10.8)
[2021-02-09 10:38] LABS: Hemoglobin A1C 5.5 % (4.0-6.0)
[2021-02-09 11:04] LABS: Alanine Aminotransferase 19 U/L (12-78); Albumin Level 4.4 g/dl (3.5-5.0); Albumin/Globulin Ratio 1.8 (1.1-1.8); Alkaline Phosphatase 70 U/L (38-126); Anion Gap 9.2 mEq/L (5-15); Aspartate Amino Transferase 27 U/L (17-59); Bilirubin,Total 0.7 mg/dl (0.2-1.3); Blood Urea Nitrogen 16 mg/dl (9-20); Calcium 9.3 mg/dl (8.4-10.2); Carbon Dioxide 31 mmol/L (22.0-30.0); Chloride 103 mmol/L (98-107); Chol/HDL Ratio 2.5 (1-3.5); Cholesterol 109 mg/dl (140-200); Estimated Glomerular Filt Rate 118 ml/min (>60); GFR (African American) 142 ML/MIN (>60); Globulin 2.5 g/dL (1.3-3.2); Glucose 95 mg/dl (74-100); HDL Cholesterol 43 mg/dl (40-60); Iron 200 ug/dL (49-181); Magnesium 2.2 mg/dl (1.6-2.3); Phosphorous 3.5 mg/dl (2.5-4.5); Potassium 4.2 mmoL/L (3.5-5.1); Sodium 139 mmol/L (136-145); Total Protein,Serum 6.9 g/dl (6.3-8.2); Triglycerides 78 mg/dl (30-150); VLDL Cholesterol 16 mg/dL (0-40)
[2021-02-09 11:15] LABS: Direct LDL Cholesterol 45.91 mg/dL (100-129)
[2021-02-09 11:16] LABS: Intact Parathyroid Hormone 63.9 pg/mL (7.5-53.5)
[2021-02-09 11:34] LABS: Thyroid Stimulating Hormone 1.35 uIU/mL (0.465-4.68)
[2021-02-09 11:38] LABS: Ferritin 441 ng/ml (17.9-464)
[2021-02-09 12:14] LABS: Folate 9.64 ng/mL
[2021-02-09 12:33] LABS: 25-OH Vitamin D, Total 58.2 ng/mL (30-100)
[2021-02-10 13:42] LABS: Prealbumin 19 mg/dL (10-36)
[2021-02-16 14:00] LABS: Vitamin B1 98.2 nmol/L (66.5-200.0)
[2021-02-16 15:44] LABS: Methylmalonic Acid 176 nmol/L (0-378)
[2021-02-16 19:16] LABS: Vitamin E Alpha Tocopherol 6.4 mg/L (7.0-25.1)
[2021-02-17 04:31] LABS: Vitamin A 30.5 ug/dL (20.1-62.0); Vitamin E Gamma Tocopherol 0.8 mg/L (0.5-5.5)
== END ==
PROVIDERS: Visit Provider Physician Assistant Medical
DX: E66.01 Morbid (severe) obesity due to excess calories (principal); Z68.37 Body mass index [BMI] 37.0-37.9, adult; Z98.890 Other specified postprocedural states
CPT/HCPCS: 36415; 80053; 80061; 82131; 82306; 82728; 82746; 83036; 83540; 83735; 83970; 84100; 84134; 84425; 84443; 84446; 84590; 85025

== ENCOUNTER 2021-06-03 17:13 | Emergency (ER) | payer OTHER, SELFPAY ==
[2021-06-03 18:30] VITALS: BP 114/72; PULSE 64; RESP 19; TEMP 36.7; O2SAT 98; BMI 26.6
--- NOTE | 2021-06-03 18:53 | HMH.EDUTC ---
[facility] [place] Impression: Dental infection, Vertigo Disposition: Home, Self-Care Condition on Discharge: Good Instructions: Vertigo, Tooth Abscess, Prednisone, Meclizine, Amoxicillin Additional Instructions: Take medication as prescribed Make sure to call and make appointment with Dentist for further evaluation and treatment of broken/infected tooth Follow up with your Family Doctor if medication does not help with dizziness Return if needed Straight to ER if any life threatening symptoms Prescriptions: Meclizine HCl [Meclizine 25mg Tab] 25 mg PO Q8HP PRN #15 tab PRN Reason: Dizziness Transmission Status: Received by [facility] # Amoxicillin [Amoxicillin 500mg Cap] 500 mg PO TID #30 cap Transmission Status: Received by [facility] # predniSONE [Deltasone 10mg tablet] 10 mg PO BID 5 Days #10 tab Transmission Status: Received by [facility] # Referrals: Horacio Castillo MD [Primary Care Provider] - As needed Time of Disposition: 19:02 Medical Decision Making - Tiago Inquiry Pt receiving controlled substance: No Tiago was queried for this patient: No Vital Signs: 06/03/21 18:30 06/03/21 19:10 Temperature 98.0 F 98.0 F Temperature Source Oral Pulse Rate 64 Pulse Rate [Right Brachial] 64 Respiratory Rate 19 19 Blood Pressure 114/72 Blood Pressure [Right Arm] 114/72 Blood Pressure Mean [Right Arm] 86 Blood Pressure Source [Right Arm] Automatic Cuff Blood Pressure Position [Right Arm] Sitting 02 Sat by Pulse Oximetry 98 Oxygen Delivery Method Room Air Orders (Tests/Meds): ED MEDICATIONS Discontinued Medications Generic Name Dose Route Start Last Admin Trade Name Freq PRN Reason Stop Dose Admin Amoxicillin 500 mg 06/03/21 19:00 06/03/21 19:09 Amoxicillin 500mg Capsule PO 06/03/21 19:01 500 mg ONCE ONE Administration Protocol Meclizine HCl 25 mg 06/03/21 19:04 06/03/21 19:10 Meclizine 25mg Tablet PO 06/03/21 19:05 25 mg ONCE ONE Administration Medical Decision Narrative: Patient states that dizziness happens when he turns his head or moves quickly and started after he rolled over to get up this morning but has been on and off today with certain movement [facility] [place] - General Stated complaint: earache left ear Time Seen by Provider: 06/03/21 18:53 Mode of Arrival: Ambulatory Source of Information: Patient Limitations: No Limitations Description of Symptoms (Recalled from Triage Doc. by RN): PATIENT C/O LEFT EAR ACHE WITH DIZZINESS SINCE THIS MORNING HEENT Symptoms (Recalled from RN notes): Yes Resp Symptoms (Recalled from RN notes): No Skin Symptoms (Recalled from RN notes): No MS Symptoms (Recalled from RN notes): No Functional Status (Recalled from RN notes): WNL - History of Present Illness Provider Complaint: Patient state that he has been having pain in his left ear and as he rolled over in bed this morning he got dizzy and has been having dizziness on and off today when he moves or turns quickly States that his ears feel full and he wasnt sure if the pain in his ear was coming from his ear or where he broke a tooth a couple days ago on his left lower back tooth States that the pain shoots up from his tooth into his ear - Related Data Home Medications Medication Instructions Recorded Confirmed pantoprazole 20 mg tablet,delayed 20 mg PO DAILY 12/22/17 06/03/21 release Tamsulosin HCl [Flomax 0.4mg 0.4 mg PO HS 01/28/18 06/03/21 capsule] atorvastatin 40 mg tablet 20 mg PO HS tab 06/06/20 06/03/21 carvediloL [Carvedilol 25mg Tab] 12.5 mg PO DAILY 06/03/21 06/03/21 ramipriL [Ramipril] 5 mg PO DAILY 06/03/21 06/03/21 Previous Rx's Medication Instructions Recorded Amoxicillin [Amoxicillin 500mg 500 mg PO TID #30 cap 06/03/21 Cap] Meclizine HCl [Meclizine 25mg Tab] 25 mg PO Q8HP PRN #15 tab 06/03/21 predniSONE [Deltasone 10mg tablet] 10 mg PO BID 5 Days #10 tab 0
[2021-06-03 19:10] VITALS: BP 114/72; PULSE 64; RESP 19; TEMP 36.7; O2SAT 98
== END 2021-06-03 19:22 | disposition home or self-care (01) ==
PROVIDERS: Emergency Provider Nurse Practitioner; PCP Internal Medicine Adolescent Medicine
DX: K04.7 Periapical abscess without sinus (principal); I25.10 Atherosclerotic heart disease of native coronary artery without angina pectoris; I10 Essential (primary) hypertension; E78.5 Hyperlipidemia, unspecified; Z87.891 Personal history of nicotine dependence
CPT/HCPCS: 99202; G0463

== ENCOUNTER 2023-12-04 08:17 | Outpatient (CLI) | payer OTHER, SELFPAY ==
--- NOTE | 2023-12-04 08:30 | XR_ITS ---
FINAL REPORT CLINICAL HISTORY: shoulder pain FINDINGS: Left shoulder Three views were obtained. There is no acute fracture or dislocation. There is mild AC and glenohumeral joint degenerative change. No soft tissue abnormality is identified. IMPRESSION: Mild degenerative changes. Reviewed, Interpreted and Dictated by Rc Rosales III, MD Transcribed by Cynthia Heredia Authenticated and [facility]
--- NOTE | 2023-12-04 08:30 | XR_ITS ---
FINAL REPORT CLINICAL HISTORY: shoulder pain FINDINGS: Right shoulder Three views were obtained. There is no acute fracture or dislocation. There is mild AC and glenohumeral joint degenerative change. No soft tissue abnormality is identified. IMPRESSION: Mild degenerative changes. Reviewed, Interpreted and Dictated by Rc Rosales III, MD Transcribed by Cynthia Heredia Authenticated and . [facility]
== END 2023-12-04 23:59 ==
LOC: RAD 08:18
PROVIDERS: PCP Internal Medicine Adolescent Medicine; Visit Provider Orthopaedic Surgery
DX: M25.511 Pain in right shoulder (principal); M25.512 Pain in left shoulder
CPT/HCPCS: 73030

== ENCOUNTER 2024-02-09 13:24 | Outpatient (CLI) | payer OTHER, SELFPAY ==
--- NOTE | 2024-02-09 13:31 | XR_ITS ---
FINAL REPORT CLINICAL HISTORY: Pre Op for right shoulder surgery COMPARISON: 02/22/2020 FINDINGS: Two views of the chest were obtained. The heart size and pulmonary vascularity are within normal limits. The mediastinum is normal. No acute pulmonary abnormality is identified. There is no pneumothorax. The bony thorax is intact. IMPRESSION: No active cardiopulmonary disease. Reviewed, Interpreted and Dictated by Rc Rosales III, MD Transcribed by Nora Galloway Authenticated and [facility]
[2024-02-09 13:46] LABS: Basophils # 0.1 K/mm3 (0-0.2); Basophils % 0.8 % (0.1-2.0); Eosinophils # 0.4 K/mm3 (0.0-0.4); Hemoglobin 13.8 g/dL (14.1-18.0); Lymphocytes % 32.9 % (10-50); Mean Corpuscular HGB Conc 32.8 g/dL (31.8-35.4); Mean Corpuscular Hemoglobin 32.3 pg (27.0-31.2); Mean Corpuscular Volume 98.3 fl (80-94); Mean Platelet Volume 7.6 fl (7.4-10.4); Monocytes # 0.4 K/mm3 (0.1-1.0); Monocytes % 6.5 % (1.7-9.3); Neutrophils # 3.2 K/mm3 (1.8-7.8); Neutrophils % 53.7 % (37.0-80.0); Platelet Count 298 K/mm3 (142-424); Red Blood Count 4.27 M/mm3 (4.60-6.20); Red Cell Distribution Width 13.2 % (11.5-17.5); White Blood Count 5.9 K/mm3 (4.8-10.8)
[2024-02-09 14:18] LABS: Albumin Level 4.1 g/dl (3.5-5.0); Albumin/Globulin Ratio 1.8 (1.1-1.8); Alkaline Phosphatase 50 U/L (38-126); Anion Gap 8.1 mEq/L (5-15); Bilirubin,Total 0.4 mg/dl (0.2-1.3); Calcium 8.9 mg/dl (8.4-10.2); Carbon Dioxide 32 mmol/L (22.0-30.0); Chloride 103 mmol/L (98-107); Globulin 2.3 g/dL (1.3-3.2); Glucose 114 mg/dl (74-100); Potassium 4.1 mmoL/L (3.5-5.1); Sodium 139 mmol/L (136-145); Total Protein,Serum 6.4 g/dl (6.3-8.2)
[2024-02-09 14:19] LABS: Alanine Aminotransferase 17 U/L (12-78); Aspartate Amino Transferase 25 U/L (17-59)
[2024-02-09 14:23] LABS: Blood Urea Nitrogen 17 mg/dl (9-20); Estimated Glomerular Filt Rate 100 ml/min (>60); GFR (African American) 121 ML/MIN (>60)
== END 2024-02-09 23:59 ==
LOC: LAB 13:25
PROVIDERS: PCP Internal Medicine Adolescent Medicine; Visit Provider Orthopaedic Surgery
DX: Z01.818 Encounter for other preprocedural examination (principal); M75.121 Complete rotator cuff tear or rupture of right shoulder, not specified as traumatic
CPT/HCPCS: 36415; 71046; 80053; 85025

== ENCOUNTER 2024-02-11 10:46 | Day surgery (SDC) | payer OTHER, SELFPAY ==
[2024-02-10 13:50] VITALS: BMI 25.7
[2024-02-11] VITALS (9 sets, daily range): BP systolic 122–162; BP diastolic 60–96; PULSE 52–77; RESP 12–18; TEMP 30.7–36.6; O2SAT 92–98
[2024-02-11] MEDS: LACTATED RINGERS 1000ML 1,000 ML 25 ML IV (11:03)
--- NOTE | 2024-02-11 11:50 | ECG_ITS ---
APPROVED REPORT Exam: Resting ECG HR:51 bpm ECG Measurements Heart Rate 51 AXES AZ 170 P 52 QRSd 118 QRS 31 QT 456 T 40 QTc 432 Conclusion SINUS BRADYCARDIA MODERATE INTRAVENTRICULAR CONDUCTION DELAY [110+ ms QRS DURATION] BORDERLINE ECG UNCONFIRMED REPORT Electronically signed by : Horacio Castillo MD 02/11/2024 21:10:04
--- NOTE | 2024-02-11 12:11 | P.PNANES_ITS ---
[facility] Disclaimer: The information contained in this section may have been updated after the patient was seen, as this information can be updated by other users. Medical History HLD (hyperlipidemia) HHD (hypertensive heart disease) CAD (coronary artery disease) Surgical History History of gastric surgery History of foot surgery Family History Other No significant family history Social History Smoking Status: Former smoker tobacco type: smokeless tobacco second hand exposure: Yes alcohol intake: never counseling provided: provider counseling substance use type: denies use current occupational status: other Travel in the last 8 weeks: None household members: spouse housing: house caffeine: Yes [facility] Anesthesia Checklist Patient Identification Patient Identification: Arm Band and Family Structural Data Admitted From: Home Planned Operative Procedure/s: Arthroscopic Rotator Cuff Repair Consent for Planned Operative Procedure(s) Verified: Yes Verified Documents: Surgical Consent and History and Physical NPO Status Verified Time NPO: 00:00 Additional verifications Patient : No Anesthesia Reactions: No Hx Blood Transfusions: No Blood Transfusion Reaction: No Cephalosporin Allergy: No Previous Colonoscopy: No Airway Assessment Mallampati Score:: Class I C-Spine Mobility Assessed: Yes TMJ Mobility Assessed: Yes Dentition: Good Dentition Neurological Assessment Level of Consciousness: Awake, Alert, Appropriate and Follows Commands Hx Seizures: No Numbness or tingling in extremities: No Anesthesia Plan Anesthesia Risk discussed: Yes ASA Class: I Anesthesia Type: General w/block Preoperative Comments Pre-Operative Comments: History of gastric sleeve.
--- NOTE | 2024-02-11 12:44 | P.PNANES_ITS ---
[facility] Anesthesia Record Part I Anesthesia Record I Intake, IV Amount: 250 Hydration: Adequate Estimated blood loss (mL): 10 Urine output (mL): 0 Blood Products used (#): none Blood Pressure: 162/96 SaO2: 98 Pulse Rate: 77 Airway Patency: Patent Respiratory Rate: 18 Temperature: 87.3 F Patient is:: Drowsy and Stable Stable to PACU at:: 12:23
[2024-02-11] MEDS: RINGERS SOLUTION,LACTATED 6,000 ML 6000 ML IR (13:35)
[2024-02-11] MEDS: CLINDAMYCIN PHOSPHATE/D5W 900 MG/50 ML PIGGYBACK 106 MG IV (13:35)
[2024-02-11] MEDS: EPINEPHrine 0.1 MG/ML 10ML SYRINGE (CRASH CART) 1 MG (13:36)
--- NOTE | 2024-02-11 14:34 | P.PNANES_ITS ---
[facility] Anesthesia Record Part I Anesthesia Record I Intake, IV Amount: 800 Hydration: Adequate Estimated blood loss (mL): 20 Urine output (mL): 0 Blood Pressure: 124/62 SaO2: 96 Pulse Rate: 75 Airway Patency: Patent Respiratory Rate: 12 Temperature: 97.2 F Patient is:: Drowsy and Oral/Nasal airway Stable to PACU at:: 14:30
--- NOTE | 2024-02-11 14:34 | P.OP_ITS ---
Date of procedure: 02/11/24 Pre-op Diagnosis:: Right shoulder full-thickness rotator cuff tear Post-op Diagnosis:: Same Procedure performed:: Right shoulder arthroscopy with rotator cuff repair and subacromial decompression Surgeon:: Jerry Isabel DO [employer] SUPERVISOR:: Reena Cheung Anesthesia: GETA and regional Estimated blood loss (mL): 0 Operative findings:: Full-thickness rotator cuff tear Operative note:: Patient identified preoperatively. Right shoulder marked with yes my initials. Underwent a block with anesthesia and taken the operating room placed upon the operating bed. General anesthesia ministered airway secured. Then placed in a lateral position with a beanbag with all bony prominences well-padded. Right upper extremity was then prepped and draped within the arm hicks. Once prepped and draped final operative timeout performed to identify proper patient procedure and extremity. Everyone involved the case agreed. There is no counter indications to beginning. Did receive preoperative antibiotics. Marking pen was used to acosta bony landmarks of the shoulder standard portal sites. Skin knife was used incise standard posterior viewing portal and blunt trocar was placed in glenohumeral joint. Within the glenohumeral joint there was some fraying of the articular cartilage of the humerus and evidence of full- thickness rotator cuff tear. Tensions brought the subacromial space in the subacromial space the lateral portal was established with a passport cannula. Significant bursitis was present bursectomy was performed with sucker shaver and electrocautery. There is again evidence of full-thickness rotator cuff tear. There was a downsloping acromion with a spur to use a 5.5 mm barrel bur subacromial decompression and acromioplasty was performed. Attention was then brought to repair of the rotator cuff. The footprint was debrided. Scorpion needle was open with fiber tape and a speed fix method was used placing 2 anchors to repair the rotator cuff back to the footprint. This g ave good fixation of the rotator cuff and was stable repair. No further pathology was seen the cameras removed the joint was drained skin was closed with nylon stitch sterile dressing was placed patient placed in sling and pillow taken recovery in stable condition. Condition: stable Disposition: PACU Complications:: None apparent
--- NOTE | 2024-02-12 09:30 | EXP.ANES.II ---
[facility] Anesthesia Record Part II Anesthesia Record Part II Discharge Time: 14:50 Destination: Surgical Day Care (OP Surgery) PACU nurse assessment reviewed?: Yes Patient Condition:: Good Anesthesia Complications:: None Swallowing reflex intact?: Yes Airway Patency: Patent Cyanosis?: No Blood Pressure: 144/77 SaO2: 93 Respiratory Rate: 15 Pulse Rate: 66 Temperature: 97.1 F Mental Status: Alert & Oriented Pain level:: 0 Nausea and/or vomitting:: None Intake, IV Amount: 0 Hydration: Adequate
[2024-02-12 09:31] VITALS: BP 144/77; PULSE 66; RESP 15; TEMP 36.2; O2SAT 93
== END 2024-02-11 15:28 | disposition home or self-care (01) ==
PROVIDERS: PCP Internal Medicine Adolescent Medicine; Visit Provider Orthopaedic Surgery
PROC: (CPT 29805; principal; 2024-02-11 12:15)
DX: M75.121 Complete rotator cuff tear or rupture of right shoulder, not specified as traumatic (principal); I25.10 Atherosclerotic heart disease of native coronary artery without angina pectoris; I11.9 Hypertensive heart disease without heart failure; E78.5 Hyperlipidemia, unspecified; Z87.891 Personal history of nicotine dependence; R29.6 Repeated falls
CPT/HCPCS: 29827; 29826; 93005; 96374; C1713; J2405

== ENCOUNTER 2024-05-21 08:00 | Outpatient (RCR) | payer OTHER, SELFPAY ==
--- NOTE | 2024-03-04 10:44 | HMH.OTOPEV ---
OT Inpatient Evaluation Rehab OT Outpatient Eval Start: 03/04/24 10:24 Freq: Status: Active Protocol: Document 03/04/24 10:25 ADRIEN (Rec: 03/04/24 10:38 ADRIEN [id number]) E-signed By Odessa Yin, OT Outpatient Therapy Subjective History Subjective History 58 year old male referred to skilled OP OT services for s/p RCR and SAD to R shld on 02/10. Patient is currently ~3 weeks out from initial surgery . f/u with orth in two weeks. New diagnosis of cancer in past 12 No months? 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 Type Ache Symptoms Relieved By Nothing Symptoms Aggravated By Physical Activity Prior Functional Limitations None Current Functional Limitations Reaching,Lifting,Recreation Activity Symptom Description Constant and Continuous Level of pain today (0-10) 2 Pain scale - at its best (0-10) 2 Pain scale - at its worst (0-10) 6 Shoulder/Elbow Eval Shoulder Objective Measurements Shoulder ROM Right Shoulder Abduction Active Range of 0 Motion (degrees) Shoulder Abduction Passive Range of 0 Motion (degrees) Shoulder Flexion Active Range of Motion 0 (degrees) Query Text: Shoulder Flexion Passive Range of Motion 40 (degrees) Shoulder External Rotation Active Range 0 of Motion (degrees) Shoulder External Rotation Passive Range 0 of Motion (degrees) Shoulder Internal Rotation Active Range 0 of Motion (degrees) Shoulder Internal Rotation Passive Range 0 of Motion (degrees) pain with active ROM shoulder exam right standard Shoulder MMT Shoulder Abduction Strength Grade 2 Poor Shoulder Extension Strength Grade 2 Poor Shoulder Flexion Strength Grade 2 Poor Shoulder Horizontal Abduction Strength 2 Poor Grade Shoulder Horizontal Adduction Strength 2 Poor Grade Infraspinatus/Teres Minor Strength Grade 2 Poor Shoulder External Rotation Strength 2 Poor Grade Middle Deltoid Strength Strength Grade 2 Poor Shoulder Internal Rotation Strength 2 Poor Grade Elbow Objective Measurements Wrist/Hand Eval Hydroponics Worker/Pinch Strength Right Hydroponics Worker Strength Measurement (lbs) 40 Left Hydroponics Worker Strength Measurement (lbs) 80 QuickDASH Activities Please rate your ability to do the following activities in the last week by selecting the number below the appropriate response. 1. Open a tight or new jar. Unable 2. Do heavy machine tech (e.g., wash Unable yoon, floors). 3. Carry a shopping bag or briefcase. Unable 4. Wash your back. Unable 5. Use a knife to cut food. Unable 6. Recreational activities in which you Unable take some force or impact through your arm, shoulder, or hand (e.g., golf, hammering, tennis, etc.). 7. During the past week, to what extent Not at all has your arm, shoulder or hand problem interfered with your normal social activities with family, friends, neighbors or groups? 8. During the past week, were you Unable limited in your work or other regular daily activites as a result of your arm, shoulder or hand problem? 9. Arm, shoulder or hand pain. Extreme 10. Tingling (pins and needles) in your Extreme arm, shoulder or hand. 11. During the past week, how much So much difficulty that I can' difficulty have you had sleeping because t sleep of the pain in your arm, shoulder or hand? Quick DASH 51 Work Module (optional) The following questions ask about the impact of your arm, shoulder or hand problem on your ability to work (including homemaking if that is your main work role). 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 Using your usual technique for your Unable work? 2. Doing your usual work because of arm, Unable shoulder or hand pain? 3. Doing your work as well as you would Unable like? 4. Spending your usual amount of time Unable doing your work? Quick Dash Work Module Score 20 OT Outpatient Assessment Impairments Problems/Impairments Impaired Range of Motion, Impaired Strength,Subjective C /O Pain Prognosis Rehab Potential Good Clinical Impression Consistent with Diagnosis Yes Short Term Goals Number of Weeks 2 Increase Range of Motion Yes: Improve PROM of R UE shld flex: 80 Increase Strength Yes: Improve R physics faculty member strength to 50# Decrease Subjective C/O Pain Yes: 5/10 pain at worst Patient to be Ind w/ HEP Yes: PROM Patient to be Ind w/ Advanced HEP Yes: Strengthening Improve Quick Dash Score Yes: 45 Fine Arts Instructor Goals Number of Weeks 4 Increase Range of Motion Yes: Improve PROM of R UE shld flex: 100 Increase Strength Yes: Improve R physics faculty member strength to 60# Decrease Subjective C/O Pain Yes: 4/10 pain at worst Patient to be Ind w/ HEP Yes: AROM Patient to be Ind w/ Advanced HEP Yes: Strengthening Improve Quick Dash Score Yes: 40 Outpatient Therapy Plan of Care Treatment Plan May Include Therapeutic Exercise Including Home Yes Exercise Program Manual Therapy Techniques Yes Therapeutic Activities to Return to Yes Previous Functional/Work Level Thermal Modalities Yes Electrical Stimulation Yes Ultrasound/Phonophoresis Yes Iontophoresis Yes Eval/Re-Eval Yes Aquatic Therapy Yes Frequency Times per week 2x/wk Duration Number of Weeks 4 weeks Addendums This patient is a candidate for social No or vocational rehab? Patient/Guardian verbally acknowledges Yes understanding of treatment program and consents to further treatment? Patient/Guardian verbally acknowledges Yes understanding of diagnosis, prognosis and goals for treatment? Eval Complexity OT Charge [id number] - Low Complexity PHYSICIAN CERTIFICATION: I certify the specified therapy services for Tej Ojeda are required, authorized, and reviewed every 30 days.
== END 2024-05-21 09:10 | disposition home or self-care (01) ==
LOC: OT 08:00
PROVIDERS: Visit Provider Orthopaedic Surgery
DX: M25.511 Pain in right shoulder (principal); M75.120 Complete rotator cuff tear or rupture of unspecified shoulder, not specified as traumatic; Z98.890 Other specified postprocedural states
CPT/HCPCS: 97010; 97014; 97035; 97110; 97140; 97164; 97165; 97530; G0283

== ENCOUNTER 2024-10-13 07:53 | Outpatient (CLI) | payer OTHER, SELFPAY ==
[2024-10-13 08:15] LABS: Basophils # 0.1 K/mm3 (0-0.2); Basophils % 1.2 % (0.1-2.0); Eosinophils # 0.3 K/mm3 (0.0-0.4); Eosinophils % 6.4 % (0.1-12.0); Hematocrit 42.5 % (42.0-52.0); Hemoglobin 14.4 g/dL (14.1-18.0); Lymphocytes # 1.7 K/mm3 (0.7-4.5); Lymphocytes % 35.9 % (10-50); Mean Corpuscular HGB Conc 33.8 g/dL (31.8-35.4); Mean Corpuscular Volume 94.8 fl (80-94); Mean Platelet Volume 7.6 fl (7.4-10.4); Monocytes # 0.4 K/mm3 (0.1-1.0); Monocytes % 8.3 % (1.7-9.3); Neutrophils # 2.3 K/mm3 (1.8-7.8); Neutrophils % 48.1 % (37.0-80.0); Platelet Count 273 K/mm3 (142-424); Red Blood Count 4.49 M/mm3 (4.60-6.20); Red Cell Distribution Width 12.9 % (11.5-17.5); White Blood Count 4.7 K/mm3 (4.8-10.8)
[2024-10-13 08:34] LABS: Hemoglobin A1C 5.3 % (4.0-6.0)
[2024-10-13 10:03] LABS: Alanine Aminotransferase 13 U/L (12-78); Albumin Level 4.1 g/dl (3.5-5.0); Albumin/Globulin Ratio 1.8 (1.1-1.8); Alkaline Phosphatase 60 U/L (38-126); Anion Gap 8.2 mEq/L (5-15); Aspartate Amino Transferase 24 U/L (17-59); Bilirubin,Total 0.7 mg/dl (0.2-1.3); Blood Urea Nitrogen 13 mg/dl (9-20); Calcium 8.9 mg/dl (8.4-10.2); Carbon Dioxide 33 mmol/L (22.0-30.0); Chloride 103 mmol/L (98-107); Chol/HDL Ratio 3.7 (1-3.5); Cholesterol 159 mg/dl (140-200); Estimated Glomerular Filt Rate 100 ml/min (>60); GFR (African American) 121 ML/MIN (>60); Globulin 2.3 g/dL (1.3-3.2); Glucose 82 mg/dl (74-100); HDL Cholesterol 43 mg/dl (40-60); Potassium 4.2 mmoL/L (3.5-5.1); Sodium 140 mmol/L (136-145); Total Protein,Serum 6.4 g/dl (6.3-8.2); Triglycerides 88 mg/dl (30-150); VLDL Cholesterol 18 mg/dL (0-40)
[2024-10-13 10:15] LABS: Direct LDL Cholesterol 99.69 mg/dL (100-129)
[2024-10-13 10:21] LABS: Free Thyroxine Index 2.8 ug/dL (5.93-13.13); T4 (Thyroxine) 8.8 ug/dl (5.53-11.0); Triiodothryronine (T3) Uptake 32 % (23.5-40.5)
[2024-10-13 10:23] LABS: 25-OH Vitamin D, Total 46.1 ng/mL (30-100)
[2024-10-13 10:34] LABS: Thyroid Stimulating Hormone 2.35 uIU/mL (0.465-4.68)
[2024-10-13 10:35] LABS: Prostate Specific Ag Screen 1.2 ng/ml (0.0-4.0)
[2024-10-13 10:54] LABS: Vitamin B12 261 pg/mL (239-931)
== END 2024-10-13 23:59 | disposition home or self-care (01) ==
LOC: LAB 07:54
PROVIDERS: PCP Internal Medicine Adolescent Medicine; Visit Provider Internal Medicine Adolescent Medicine
DX: R55 Syncope and collapse (principal); I10 Essential (primary) hypertension; R53.81 Other malaise; R53.83 Other fatigue; Z00.00 Encounter for general adult medical examination without abnormal findings
CPT/HCPCS: 36415; 80050; 80053; 80061; 82306; 82607; 83036; 84436; 84443; 84479; 85025; G0103

== ENCOUNTER 2025-09-19 09:32 | Outpatient (CLI) | payer OTHER, SELFPAY ==
--- NOTE | 2025-09-19 09:37 | XR_ITS ---
FINAL REPORT CLINICAL HISTORY: right foot pain COMPARISON: None FINDINGS: RIGHT FOOT 3 views of the right foot were obtained. There is no acute fracture or dislocation. Visualized joint spaces are normally aligned. Soft tissues are unremarkable. A small plantar calcaneal spur is noted, as well as a moderate Carlos deformity. IMPRESSION: No acute bony abnormality. Reviewed, Interpreted and Dictated by Jonathan Branch MD Transcribed by Yola Parra Authenticated and [facility]
--- NOTE | 2025-09-19 09:37 | XR_ITS ---
FINAL REPORT TECHNIQUE: Right knee 3 views CLINICAL HISTORY: right knee pain COMPARISON: None FINDINGS: RIGHT KNEE There is no acute fracture or dislocation. There is moderate medial compartment narrowing of the right knee, with osteophytes involving the medial margin of the medial compartment and the superior patella. There is no soft tissue abnormality. IMPRESSION: Moderate changes of osteoarthritis without acute osseous abnormality. Reviewed, Interpreted and Dictated by Jonathan Branch MD Transcribed by Yola Parra Authenticated and [facility]
--- NOTE | 2025-09-19 09:37 | XR_ITS ---
FINAL REPORT CLINICAL HISTORY: right ankle pain COMPARISON: None FINDINGS: RIGHT ANKLE 3 views of the right ankle were obtained. There is no acute fracture or dislocation. There is a small well-corticated ossific density adjacent to the medial malleolus that likely represents a remote fracture fragment. The mortise is intact. Visualized joint spaces are normally aligned. Soft tissues are unremarkable. IMPRESSION: No acute bony abnormality. Reviewed, Interpreted and Dictated by Jonathan Branch MD Transcribed by Yola Parra Authenticated and . [facility]
--- NOTE | 2025-09-19 11:53 | XR_ITS ---
FINAL REPORT CLINICAL HISTORY: right tib/fib pain - injury x 1 week COMPARISON: None FINDINGS: RIGHT TIBIA FIBULA: There is no acute fracture or dislocation. The joint spaces are intact. There is no soft tissue abnormality. IMPRESSION: No acute fracture Reviewed, Interpreted and Dictated by Jonathan Branch MD Transcribed by Yola Parra Authenticated and [facility]
== END 2025-09-19 23:59 | disposition home or self-care (01) ==
PROVIDERS: PCP Internal Medicine Adolescent Medicine; Visit Provider Physician Assistant Surgical
DX: M17.11 Unilateral primary osteoarthritis, right knee (principal); M25.571 Pain in right ankle and joints of right foot; M79.671 Pain in right foot; M79.604 Pain in right leg
CPT/HCPCS: 73562; 73590; 73610; 73630